=== PATIENT | female | born 1980 | race Caucasian/White ===

== ENCOUNTER 2016-11-02 14:28 | Emergency (ER) | payer OTHER ==
[2016-11-02 15:10] VITALS: TEMP 97.8
--- NOTE | 2016-11-02 16:44 | ED ---
General Adult HPI - General Chief complaint: Chest Pain Stated complaint: left shoulder & Chest pain Time Seen by Provider: 11/02/16 16:17 Source: patient, RN notes reviewed, old records reviewed Mode of arrival: ambulatory Limitations: no limitations - History of Present Illness Initial comments: Chief complaint and history of present illness is a 28-year-old female with multiple medical problems. She reports when she was exercising today at the why she had discomfort to her left arm. She reports she often gets to the point of nearly blacking out not passing out or syncope but with exercise singing coughing she'll have to stop and things get black. She does have a past history of POTS. She supposed to be on nadolol which she stopped 3 months ago. States she's worsen stopping it. Strongly advised to return to her complaint evaluation officer for reevaluation and then restarting her medication. No associated sweats or other problems. No chest pain today. His recurrent palpitations. Feels flushed. Reports this happens daily. - Related Data Home Medications Medication Instructions Recorded Confirmed Folic Acid 1 mg PO DAILY 11/02/16 11/02/16 Ipratropium [place] [Atrovent Hfa] 2 puff INHALATION RT-QID PRN 11/02/16 L.acidoph,Paracasei, B.lactis 1 cap PO DAILY 11/02/16 11/02/16 [Probiotic] Multivitamins, Thera [Multivitamin] 1 tab PO DAILY 11/02/16 11/02/16 Allergies Allergy/AdvReac Type Severity Reaction Status Date / Time ciprofloxacin [From Cipro] Allergy Rash/Hives Verified 11/02/16 16:46 codeine Allergy Anaphylaxis Verified 11/02/16 16:46 Iodinated Contrast Media - Allergy Anaphylaxis Verified 11/02/16 16:46 Oral and [Iodinated Contrast Media - IV Dye] iodine Allergy Anaphylaxis Verified 11/02/16 16:46 morphine Allergy Anaphylaxis Verified 11/02/16 16:46 peas Allergy Throat Verified 11/02/16 16:46 Itches Penicillins Allergy Dyspnea Verified 11/02/16 16:46 sulfamethoxazole Allergy Rash/Hives Verified 11/02/16 16:46 [From Bactrim] trimethoprim [From Bactrim] Allergy Rash/Hives Verified 11/02/16 16:46 Review of Systems ROS Statement: Those systems with pertinent positive or pertinent negative responses have been documented in the HPI. Review of systems when sitting still no headache but she have chronic neck discomfort no chest pain occasional palpitation when she sings or breathes rapidly. No GI/ problems that are new. Chronic right lower quadrant discomfort being worked on for years by urologists CULINARY MANAGER and family doctor. One new finding is some tingling to her left second toe. All systems were otherwise reviewed. Past medical problems GERD, prolapse mitral valve by Doppler per patient. Pots syndrome. Surgeries include ureteral surgery on the right kidney, hysterectomy cholecystectomy. Family history not cooperative during ALLERGIES Cipro, iodine contrast, PEs, penicillin. On hard copy. Nonsmoker nondrinker ROS Other: All systems not noted in ROS Statement are negative. Past Medical History Past Medical History: GERD/Reflux Additional Past Medical History / Comment(s): POTS, PROLAPSED MITRAL VALVE, MTHFR(CLOTTING DISORDER), hydronephrosis History of Any Multi-Drug Resistant Organisms: MRSA Date of last positivie culture/infection: 2006 MDRO Source:: THIGH Past Surgical History: Cholecystectomy, Hysterectomy Additional Past Surgical History / Comment(s): KIDNEY SURGERY Past Psychological History: No Psychological Hx Reported Smoking Status: Former smoker Past Alcohol Use History: None Reported Past Drug Use History: None Reported General Exam - General Exam Comments Initial Comments: General: The patient is awake and alert, in no distress, and does not appear acutely ill. Symptoms occurred while working out at the [employer]. Some discomfort her left arm. As she stopped her routine. Vital signs show temperature 97.8 pulse 85 respiratory rate 20 pulse ox 99% room air blood pressure 146/81. Elevated systolic noted. Patient will be following up with her family physician in next 1-2 weeks. Eye: Pupils are equal, round and reactive to light, extra-ocular movements are intact ; there is normal conjunctiva bilaterally. No signs of icterus. Ears, nose, mouth and throat: There are moist mucous membranes and no oral lesions. Neck: The neck is supple, there is no tenderness or JVD. Thyroid not enlarged, no carotid bruit. Chronic left-sided neck discomfort but nothing new today. She also hypothesized is that may be the left arm discomfort came from the chronic discomfort in her neck. Cardiovascular: There is a regular rate and rhythm. No murmur, rub or gallop is appreciated. Respiratory: Lungs are clear to auscultation, respirations are non-labored, breath sounds are equal. No wheezes, stridor, rales, or rhonchi. Gastrointestinal: Soft, non-distended, non-tender abdomen without masses or organomegaly noted. There is no rebound or guarding present. No CVA tenderness. Bowel sounds are unremarkable. Chronic right lower quadrant discomfort. Being worked up by family doctor, CULINARY MANAGER and urology. No changes today. Back: There is no tenderness to palpation in the midline. There is no obvious deformity. No rashes noted. Musculoskeletal: Normal ROM, no tenderness, There is no pedal edema. There is no calf tenderness or swelling. Sensation intact. Pulses equal bilaterally 2+. Neurological: CN II-XII intact, There are no obvious motor or sensory deficits. Coordination appears grossly intact. Speech is normal. No focal or lateralizing findings Skin: Skin is warm and dry and no rashes or lesions are noted. Psychiatric: Cooperative, appropriate mood & affect, normal judgment. Limitations: no limitations Course Vital Signs 11/02/16 11/02/16 15:07 17:50 Temperature 97.8 F Pulse Rate 85 81 Respiratory 20 18 Rate Blood Pressure 146/81 140/74 O2 Sat by Pulse 99 98 Oximetry EKG Findings - EKG Comments: EKG Findings:: EKG was done and reviewed at 1522 showing normal sinus rhythm no acute ST elevation no ectopy no ischemic changes. Rate 82. A 154 QRS 86 QTC 4: 15. Medical Decision Making - Medical Decision Making Decision making; patient's labs show white count 7.8 hemoglobin 13.7 hematocrit 40, INR 1.0. Potassium 3.9 with a BUN 12 creatinine 0.8 with a GFR greater than 60. Troponin less than 0.012 CK within normal limits. Chest x-ray was done and reviewed by radiologist his impression is ;there is no focal airspace opacity, pleural effusion, or pneumothorax seen. Cardiac silhouette size within normal limits. osseous structures are intact. Impression no acute cardiopulmonary process. As read by Dr. Lay The patient's vital signs, EKG and labs NORMAL. THE PATIENT WAS TOLD TO CALL FOLLOW UP WITH HER FAMILY PHYSICIAN AND HER MANNEQUIN MAKER. STRONGLY SUGGEST THAT SHE START ON THE SAME MEDICATIONS ARE SUPPOSED BE ON WHICH SHE VOLUNTARILY STOPPED 3 MONTHS AGO. SHE ADMITS THAT SHE FELT BETTER WHILE ON THEM. ADVISED NO EXERCISE UNTIL CLEARED BY HER DOCTORS. - Lab Data Result diagrams: 11/02/16 16:52 11/02/16 16:52 Lab Results 11/02/16 11/02/16 11/02/16 Range/Units 16:52 16:52 16:52 WBC 7.8 (3.8-10.6) k/uL RBC 4.66 (3.80-5.40) m/uL Hgb 13.7 (11.4-16.0) gm/dL Hct 40.0 (34.0-46.0) % MCV 85.8 (80.0-100.0) fL MCH 29.3 (25.0-35.0) pg MCHC 34.1 (31.0-37.0) g/dL RDW 12.6 (11.5-15.5) % Plt Count 271 (150-450) k/uL Neutrophils % 69 % Lymphocytes % 19 % Monocytes % 9 % Eosinophils % 1 % Basophils % 1 % Neutrophils # 5.4 (1.3-7.7) k/uL Lymphocytes # 1.5 (1.0-4.8) k/uL Monocytes # 0.7 (0-1.0) k/uL Eosinophils # 0.1 (0-0.7) k/uL Basophils # 0.0 (0-0.2) k/uL PT (9.0-12.0) sec INR (<1.1) APTT (22.0-30.0) sec Sodium 142 (137-145) mmol/L Potassium 3.9 (3.5-5.1) mmol/L Chloride 105 (98-107) mmol/L Carbon Dioxide 25 (22-30) mmol/L Anion Gap 12 mmol/L BUN 12 (7-17) mg/dL Creatinine 0.81 (0.52-1.04) mg/dL Est GFR (MDRD) Af Amer >60 (>60 ml/min/1.73 sqM) Est GFR (MDRD) Non-Af >60 (>60 ml/min/1.73 sqM) Glucose 89 (74-99) mg/dL Calcium 9.4 (8.4-10.2) mg/dL Magnesium 1.9 (1.6-2.3) mg/dL Total Bilirubin 0.5 (0.2-1.3) mg/dL AST 23 (14-36) U/L ALT 33 (9-52) U/L Alkaline Phosphatase 66 (38-126) U/L Total Creatine Kinase 106 (30-135) U/L CK-MB (CK-2) 0.8 (0.0-2.4) ng/mL CK-MB (CK-2) Rel Index 0.8 Troponin I <0.012 (0.000-0.034) ng/mL Total Protein 7.9 (6.3-8.2) g/dL Albumin 4.5 (3.5-5.0) g/dL 11/02/16 Range/Units 16:52 WBC (3.8-10.6) k/uL RBC (3.80-5.40) m/uL Hgb (11.4-16.0) gm/dL Hct (34.0-46.0) % MCV (80.0-100.0) fL MCH (25.0-35.0) pg MCHC (31.0-37.0) g/dL RDW (11.5-15.5) % Plt Count (150-450) k/uL Neutrophils % % Lymphocytes % % Monocytes % % Eosinophils % % Basophils % % Neutrophils # (1.3-7.7) k/uL Lymphocytes # (1.0-4.8) k/uL Monocytes # (0-1.0) k/uL Eosinophils # (0-0.7) k/uL Basophils # (0-0.2) k/uL PT 10.4 (9.0-12.0) sec INR 1.0 (<1.1) APTT 25.3 (22.0-30.0) sec Sodium (137-145) mmol/L Potassium (3.5-5.1) mmol/L Chloride (98-107) mmol/L Carbon Dioxide (22-30) mmol/L Anion Gap mmol/L BUN (7-17) mg/dL Creatinine (0.52-1.04) mg/dL Est GFR (MDRD) Af Amer (>60 ml/min/1.73 sqM) Est GFR (MDRD) Non-Af (>60 ml/min/1.73 sqM) Glucose (74-99) mg/dL Calcium (8.4-10.2) mg/dL Magnesium (1.6-2.3) mg/dL Total Bilirubin (0.2-1.3) mg/dL AST (14-36) U/L ALT (9-52) U/L Alkaline Phosphatase (38-126) U/L Total Creatine Kinase (30-135) U/L CK-MB (CK-2) (0.0-2.4) ng/mL CK-MB (CK-2) Rel Index Troponin I (0.000-0.034) ng/mL Total Protein (6.3-8.2) g/dL Albumin (3.5-5.0) g/dL Disposition Clinical Impression: Palpitations Disposition: HOME SELF-CARE Condition: Fair Instructions: Palpitations (ED) Additional Instructions: Follow-up family doctor and hand mixer. Start taking the medications prescribed by your doctors. No exercise until cleared by your physicians. Time of Disposition: 18:13
[2016-11-02 17:19] LABS: Basophils % (A) 1 %; CH 29.5; CHCM 34.5; Eosinophils # (A) 0.1 k/uL (0-0.7); Eosinophils % (A) 1 %; HDW 2.35; HGB 13.7 gm/dL (11.4-16.0); Luc % (Auto) 1; Lymphocytes # (A) 1.5 k/uL (1.0-4.8); Lymphocytes % (A) 19 %; MCH 29.3 pg (25.0-35.0); MCHC 34.1 g/dL (31.0-37.0); MCV 85.8 fL (80.0-100.0); Mean Platelet Volume 7.4; Monocytes # (A) 0.7 k/uL (0-1.0); Monocytes % (A) 9 %; Neutrophils # (A) 5.4 k/uL (1.3-7.7); Neutrophils % (A) 69 %; RBC 4.66 m/uL (3.80-5.40); RDW 12.6 % (11.5-15.5); WBC 7.8 k/uL (3.8-10.6)
--- NOTE | 2016-11-02 17:25 | XR ---
EXAMINATION TYPE: XR chest 2V DATE OF EXAM: 11/02/2016 5:19 PM COMPARISON: 06/27/2014 HISTORY: Pain TECHNIQUE: Frontal and lateral views of the chest are obtained. FINDINGS: There is no focal air space opacity, pleural effusion, or pneumothorax seen. The cardiac silhouette size is within normal limits. The osseous structures are intact. IMPRESSION: No acute cardiopulmonary process.
[2016-11-02 17:27] LABS: Partial Thromboplastin Time 25.3 sec (22.0-30.0); Prothrombin Time 10.4 sec (9.0-12.0)
[2016-11-02 17:34] LABS: ALT 33 U/L (9-52); AST 23 U/L (14-36); Alkaline Phosphatase 66 U/L (38-126); Anion Gap 12 mmol/L; Blood Urea Nitrogen 12 mg/dL (7-17); Calcium 9.4 mg/dL (8.4-10.2); Carbon Dioxide 25 mmol/L (22-30); Chloride 105 mmol/L (98-107); Glucose 89 mg/dL (74-99); Magnesium 1.9 mg/dL (1.6-2.3); Non-African American GFR(MDRD) >60 (>60 ml/min/1.73 sqM); Potassium 3.9 mmol/L (3.5-5.1); Sodium 142 mmol/L (137-145); Total Bilirubin 0.5 mg/dL (0.2-1.3); Total Protein 7.9 g/dL (6.3-8.2)
[2016-11-02 17:43] LABS: Creatine Kinase 106 U/L (30-135)
[2016-11-02 17:55] LABS: Creatine Kinase MB 0.8 ng/mL (0.0-2.4); Troponin I <0.012 ng/mL (0.000-0.034)
[2016-11-02 18:42] VITALS: BP 113/64; PULSE 74; RESP 16
== END 2016-11-02 18:46 | disposition home or self-care (01) ==
LOC: EC 14:28
DX: R00.2 Palpitations (principal); Z91.14 Patient's other noncompliance with medication regimen; Z86.79 Personal history of other diseases of the circulatory system; Z87.891 Personal history of nicotine dependence; Z88.0 Allergy status to penicillin; Z88.1 Allergy status to other antibiotic agents; Z88.2 Allergy status to sulfonamides; Z88.5 Allergy status to narcotic agent; Z91.041 Radiographic dye allergy status
CPT/HCPCS: 36415; 71020; 80053; 82550; 82553; 83735; 84484; 85025; 85610; 85730; 93005; 99285

== ENCOUNTER 2016-11-13 19:49 | Emergency (ER) | payer OTHER ==
[2016-11-13 20:33] VITALS: RESP 18
[2016-11-13] MEDS ORDERED: SODIUM CHLORIDE 0.9% 1,000 ML IV STA (22:43)
[2016-11-13] MEDS ORDERED: KETOROLAC 30 MG/ML 1 ML VIAL IVP STA (22:43)
[2016-11-13] MEDS ORDERED: ONDANSETRON 4 MG/2 ML VIAL IVP STA (22:43)
--- NOTE | 2016-11-13 22:54 | ED ---
Nausea/Vomiting/Diarrhea HPI - General Chief complaint: Nausea/Vomiting/Diarrhea Stated complaint: Diff breathing Time Seen by Provider: 11/13/16 22:30 Source: patient, RN notes reviewed Mode of arrival: ambulatory Limitations: no limitations - History of Present Illness Initial comments: Patient is a 36-year-old female with multiple vague complaints. Patient reports that she has recently been diagnosed with a bladder infection and placed on Macrobid. Patient reports that she has been taking it for the past 4 days. Patient reports that she has noticed increased flushing of her face and feeling chilled that despite taking the antibiotics. Patient also reports that she has some right-sided kidney pain. She states that she has a history of hydronephrosis in her right kidney. She reports that she's had no specific fever or chills she just feels very fatigued. Patient denies any vomiting but does feel nauseated. Patient also reports that she feels some lower pelvic tenderness and cramping pain. Patient denies any recent fever, chills, shortness of breath, chest pain, back pain, abdominal pain, nausea vomiting, numbness or tingling, dysuria or hematuria, constipation or diarrhea, headaches or visual changes, or any other current symptoms - Related Data Home Medications Medication Instructions Recorded Confirmed Folic Acid 1 mg PO DAILY 11/02/16 11/02/16 Ipratropium [place] [Atrovent Hfa] 2 puff INHALATION RT-QID PRN 11/02/16 L.acidoph,Paracasei, B.lactis 1 cap PO DAILY 11/02/16 11/02/16 [Probiotic] Multivitamins, Thera [Multivitamin] 1 tab PO DAILY 11/02/16 11/02/16 Allergies Allergy/AdvReac Type Severity Reaction Status Date / Time ciprofloxacin [From Cipro] Allergy Rash/Hives Verified 11/13/16 20:33 codeine Allergy Anaphylaxis Verified 11/13/16 20:33 Iodinated Contrast Media - Allergy Anaphylaxis Verified 11/13/16 20:33 Oral and [Iodinated Contrast Media - IV Dye] iodine Allergy Anaphylaxis Verified 11/13/16 20:33 morphine Allergy Anaphylaxis Verified 11/13/16 20:33 peas Allergy Throat Verified 11/13/16 20:33 Itches Penicillins Allergy Dyspnea Verified 11/13/16 20:33 sulfamethoxazole Allergy Rash/Hives Verified 11/13/16 20:33 [From Bactrim] trimethoprim [From Bactrim] Allergy Rash/Hives Verified 11/13/16 20:33 Review of Systems ROS Statement: Those systems with pertinent positive or pertinent negative responses have been documented in the HPI. ROS Other: All systems not noted in ROS Statement are negative. Past Medical History Past Medical History: GERD/Reflux Additional Past Medical History / Comment(s): POTS, PROLAPSED MITRAL VALVE, MTHFR(CLOTTING DISORDER), hydronephrosis History of Any Multi-Drug Resistant Organisms: MRSA Date of last positivie culture/infection: 2006 MDRO Source:: THIGH Past Surgical History: Cholecystectomy, Hysterectomy Additional Past Surgical History / Comment(s): KIDNEY SURGERY Past Psychological History: No Psychological Hx Reported Smoking Status: Former smoker Past Alcohol Use History: None Reported Past Drug Use History: None Reported General Exam - General Exam Comments Initial Comments: Patient is a 36-year-old female. She is on appear to be in any acute distress at this time. Limitations: no limitations General appearance: alert, in no apparent distress Head exam: Present: atraumatic Eye exam: Present: normal appearance, PERRL, EOMI. Absent: scleral icterus, conjunctival injection, periorbital swelling ENT exam: Present: normal exam, mucous membranes moist Neck exam: Present: normal inspection. Absent: tenderness, meningismus, lymphadenopathy Respiratory exam: Present: normal lung sounds bilaterally. Absent: respiratory distress, wheezes, rales, rhonchi, stridor Cardiovascular Exam: Present: regular rate, normal rhythm, normal heart sounds. Absent: systolic murmur, diastolic murmur, rubs, gallop, clicks GI/Abdominal exam: Present: soft, tenderness (Reports some suprapubic tenderness.), normal bowel sounds. Absent: distended, guarding, rebound, rigid Extremities exam: Present: normal inspection, full ROM, normal capillary refill. Absent: tenderness, pedal edema, joint swelling, calf tenderness Back exam: Present: normal inspection Neurological exam: Present: alert, oriented X3, CN II-XII intact Psychiatric exam: Present: normal affect, normal mood Skin exam: Present: warm, dry, intact, normal color. Absent: rash Course Vital Signs 11/13/16 11/14/16 20:29 01:02 Temperature 98 F 97 F L Pulse Rate 77 80 Respiratory 18 18 Rate Blood Pressure 128/80 129/69 O2 Sat by Pulse 99 98 Oximetry Medical Decision Making - Medical Decision Making Patient is a 28-year-old female with multiple vague complaints including right flank tenderness suprapubic tenderness and flushing of the face. Patient reports and treated for urinary tract infection with Macrobid for 4 days.. Patient reports that this went to take her antibiotic she starts to feel flushed in the face. Patient labs and imaging studies were reviewed and are all negative for any acute process. I discussed this case with Dr. Guajardo needed a [id number] interview with the patient. He advises to discharge the patient with some medication for constipation as her AB does show some stool. Patient will be discharged with a bottle of magnesium citrate. I also advised patient to follow-up with a [employer] if she continues to have a lower pelvic pain. Patient understands treatment plan will comply. Return parameters were discussed. - Lab Data Result diagrams: 11/13/16 22:47 11/13/16 22:47 Lab Results 11/13/16 11/13/16 11/13/16 Range/Units 22:47 22:47 22:47 WBC 7.8 (3.8-10.6) k/uL RBC 5.23 (3.80-5.40) m/uL Hgb 14.7 (11.4-16.0) gm/dL Hct 44.3 (34.0-46.0) % MCV 84.7 (80.0-100.0) fL MCH 28.2 (25.0-35.0) pg MCHC 33.3 (31.0-37.0) g/dL RDW 12.2 (11.5-15.5) % Plt Count 326 (150-450) k/uL Neutrophils % 64 % Lymphocytes % 27 % Monocytes % 5 % Eosinophils % 2 % Basophils % 1 % Neutrophils # 4.9 (1.3-7.7) k/uL Lymphocytes # 2.1 (1.0-4.8) k/uL Monocytes # 0.4 (0-1.0) k/uL Eosinophils # 0.2 (0-0.7) k/uL Basophils # 0.1 (0-0.2) k/uL PT 10.2 (9.0-12.0) sec INR 1.0 (<1.1) APTT 24.6 (22.0-30.0) sec Sodium 140 (137-145) mmol/L Potassium 3.7 (3.5-5.1) mmol/L Chloride 101 (98-107) mmol/L Carbon Dioxide 27 (22-30) mmol/L Anion Gap 12 mmol/L BUN 11 (7-17) mg/dL Creatinine 0.89 (0.52-1.04) mg/dL Est GFR (MDRD) Af Amer >60 (>60 ml/min/1.73 sqM) Est GFR (MDRD) Non-Af >60 (>60 ml/min/1.73 sqM) Glucose 92 (74-99) mg/dL Calcium 9.4 (8.4-10.2) mg/dL Total Bilirubin 0.4 (0.2-1.3) mg/dL AST 22 (14-36) U/L ALT 28 (9-52) U/L Alkaline Phosphatase 78 (38-126) U/L Total Protein 8.3 H (6.3-8.2) g/dL Albumin 4.6 (3.5-5.0) g/dL Amylase 86 (30-110) U/L Lipase 127 (23-300) U/L Urine Color Urine Appearance (Clear) Urine pH (5.0-8.0) Ur Specific [place] (1.001-1.035) Urine Protein (Negative) Urine Glucose (UA) (Negative) Urine Ketones (Negative) Urine Blood (Negative) Urine Nitrate (Negative) Urine Bilirubin (Negative) Urine Urobilinogen (<2.0) mg/dL Ur Leukocyte Esterase (Negative) 11/13/16 Range/Units 22:47 WBC (3.8-10.6) k/uL RBC (3.80-5.40) m/uL Hgb (11.4-16.0) gm/dL Hct (34.0-46.0) % MCV (80.0-100.0) fL MCH (25.0-35.0) pg MCHC (31.0-37.0) g/dL RDW (11.5-15.5) % Plt Count (150-450) k/uL Neutrophils % % Lymphocytes % % Monocytes % % Eosinophils % % Basophils % % Neutrophils # (1.3-7.7) k/uL Lymphocytes # (1.0-4.8) k/uL Monocytes # (0-1.0) k/uL Eosinophils # (0-0.7) k/uL Basophils # (0-0.2) k/uL PT (9.0-12.0) sec INR (<1.1) APTT (22.0-30.0) sec Sodium (137-145) mmol/L Potassium (3.5-5.1) mmol/L Chloride (98-107) mmol/L Carbon Dioxide (22-30) mmol/L Anion Gap mmol/L BUN (7-17) mg/dL Creatinine (0.52-1.04) mg/dL Est GFR (MDRD) Af Amer (>60 ml/min/1.73 sqM) Est GFR (MDRD) Non-Af (>60 ml/min/1.73 sqM) Glucose (74-99) mg/dL Calcium (8.4-10.2) mg/dL Total Bilirubin (0.2-1.3) mg/dL AST (14-36) U/L ALT (9-52) U/L Alkaline Phosphatase (38-126) U/L Total Protein (6.3-8.2) g/dL Albumin (3.5-5.0) g/dL Amylase (30-110) U/L Lipase (23-300) U/L Urine Color Light Yellow Urine Appearance Clear (Clear) Urine pH 5.5 (5.0-8.0) Ur Specific [place] 1.003 (1.001-1.035) Urine Protein Negative (Negative) Urine Glucose (UA) Negative (Negative) Urine Ketones Negative (Negative) Urine Blood Negative (Negative) Urine Nitrate Negative (Negative) Urine Bilirubin Negative (Negative) Urine Urobilinogen <2.0 (<2.0) mg/dL Ur Leukocyte Esterase Negative (Negative) - Radiology Data Radiology results: report reviewed Chest x-ray and KUB x-ray revealed no evidence of any acute process. Disposition Clinical Impression: Abdominal pain Disposition: HOME SELF-CARE Condition: Good Instructions: Abdominal Pain (ED) Additional Instructions: Patient started to complete magnesium citrate the morning tomorrow. Patient instructed to follow-up with [employer] if symptoms continue to persist. Referrals: Nilo Alvarez MD [Primary Care Provider] - 1-2 days Svetlana Blank MD [STAFF PHYSICIAN] - 1-2 days Time of Disposition: 00:41
[2016-11-13 22:57] LABS: Basophils # (A) 0.1 k/uL (0-0.2); Basophils % (A) 1 %; CH 29.3; CHCM 34.7; Eosinophils # (A) 0.2 k/uL (0-0.7); Eosinophils % (A) 2 %; HCT 44.3 % (34.0-46.0); HDW 2.41; HGB 14.7 gm/dL (11.4-16.0); Luc # (Auto) 0.12; Luc % (Auto) 2; Lymphocytes # (A) 2.1 k/uL (1.0-4.8); Lymphocytes % (A) 27 %; MCH 28.2 pg (25.0-35.0); MCHC 33.3 g/dL (31.0-37.0); MCV 84.7 fL (80.0-100.0); Mean Platelet Volume 6.9; Monocytes # (A) 0.4 k/uL (0-1.0); Monocytes % (A) 5 %; Neutrophils # (A) 4.9 k/uL (1.3-7.7); Neutrophils % (A) 64 %; RBC 5.23 m/uL (3.80-5.40); RDW 12.2 % (11.5-15.5); WBC 7.8 k/uL (3.8-10.6); WBC (Perox) 7.36
[2016-11-13 22:58] LABS: Appearance,Urine Clear (Clear); Bilirubin,Urine Negative (Negative); Glucose,Urine (UA) Negative (Negative); Ketones,Urine Negative (Negative); Leukocyte Esterase,Urine Negative (Negative); Nitrite,Urine Negative (Negative); PH, Urine 5.5 (5.0-8.0); Protein,Urine Negative (Negative); Specific Gravity,Urine 1.003 (1.001-1.035); UA Billing (MACRO vs. MICRO) CHEM; Urobilinogen,Urine <2.0 mg/dL (<2.0)
[2016-11-13 23:06] LABS: ALT 28 U/L (9-52); AST 22 U/L (14-36); Alkaline Phosphatase 78 U/L (38-126); Amylase 86 U/L (30-110); Anion Gap 12 mmol/L; Blood Urea Nitrogen 11 mg/dL (7-17); Calcium 9.4 mg/dL (8.4-10.2); Carbon Dioxide 27 mmol/L (22-30); Chloride 101 mmol/L (98-107); Glucose 92 mg/dL (74-99); Non-African American GFR(MDRD) >60 (>60 ml/min/1.73 sqM); Partial Thromboplastin Time 24.6 sec (22.0-30.0); Potassium 3.7 mmol/L (3.5-5.1); Prothrombin Time 10.2 sec (9.0-12.0); Sodium 140 mmol/L (137-145); Total Bilirubin 0.4 mg/dL (0.2-1.3); Total Protein 8.3 g/dL (6.3-8.2)
--- NOTE | 2016-11-13 23:32 | XR ---
EXAMINATION TYPE: XR KUB DATE OF EXAM: 11/13/2016 11:28 PM CLINICAL HISTORY: Burning of her lower abdomen with heart and cold sweats history of cholecystectomy and hysterectomy TECHNIQUE: Single supine KUB image of the abdomen is obtained. COMPARISON: None. FINDINGS: Scattered gas is seen in non-distended small bowel loops. Gas and fecal material is seen in non-distended colon. There is no visceromegaly, pneumoperitoneum, or abnormal calcification appr eciated. The lung bases are clear and the osseous structures are intact. Postsurgical changes of cho lecystectomy are noted. IMPRESSION: Overall nonobstructive bowel gas pattern.
--- NOTE | 2016-11-13 23:59 | XR ---
EXAMINATION TYPE: XR chest 2V DATE OF EXAM: 11/13/2016 11:35 PM COMPARISON: 11/12/2016 HISTORY: Shortness of breath TECHNIQUE: Frontal and lateral views of the chest are obtained. FINDINGS: There is no focal air space opacity, pleural effusion, or pneumothorax seen. The cardiac silhouette size is within normal limits. The osseous structures are intact. IMPRESSION: 1. No acute cardiopulmonary process. 2. No significant interval change.
[2016-11-14] MEDS ORDERED: MAGNESIUM CITRATE 296 ML BOTTLE PO ONE (00:42)
[2016-11-14 01:03] VITALS: BP 129/69; PULSE 80; TEMP 97
== END 2016-11-14 01:03 | disposition home or self-care (01) ==
LOC: EC 19:49
DX: R10.9 Unspecified abdominal pain (principal); Z88.5 Allergy status to narcotic agent; Z91.041 Radiographic dye allergy status; Z91.018 Allergy to other foods; Z88.0 Allergy status to penicillin; Z88.2 Allergy status to sulfonamides; Z87.891 Personal history of nicotine dependence
CPT/HCPCS: 99284; 96374; 96375; 96361; 36415; 93005; 80053; 82150; 83690; 85025; 85610; 85730; 81003; 87086; 71020; 74000; J2405; J1885

== ENCOUNTER → 2016-12-16 | Outpatient (CLI) | payer OTHER | END | disposition home or self-care (01) | LOC: LABWHC1 11:48 | PROVIDERS: ATTEND Nurse Practitioner Adult Health | DX: R00.2 Palpitations (principal); R63.5 Abnormal weight gain; R53.83 Other fatigue | CPT/HCPCS: 36415; 84443 ==

== ENCOUNTER → 2017-02-01 | Outpatient (CLI) | payer OTHER ==
--- NOTE | 2017-02-02 07:03 | MR ---
EXAMINATION TYPE: MR brain wo con DATE OF EXAM: 02/01/2017 11:42 AM COMPARISON: MRI brain May 29, 2011. HISTORY: Headaches sudden onset per order. Additional symptoms of lightheadedness and right-sided hea ring loss per patient. TECHNIQUE: Multiplanar, multisequence imaging of the brain and brainstem is performed without IV cont rast. FINDINGS: Diffusion weighted images demonstrate no evidence of a recent infarct or other diffusion abnormality. There is no extraaxial fluid collection or significant white matter signal abnormality. The ventricu lar system and cisternal spaces are normal in size and appearance. The brain volume is age appropria te. Midline structures demonstrate normal morphology. The craniocervical junction appears within normal limits. Normal vascular flow voids are present. The visualized sinuses are clear and the globes are i ntact. No suspicious fluid signal in the mastoid air cells is present bilaterally. IMPRESSION: No significant finding is seen to account for patient's symptoms.
== END | disposition home or self-care (01) ==
LOC: RADMRIMAIN 10:58
PROVIDERS: ATTEND Psychiatry & Neurology Neurology
DX: R51 Headache (principal)
CPT/HCPCS: 70551

== ENCOUNTER 2017-04-02 11:47 | Day surgery (SDC) | payer OTHER ==
[2017-04-01 09:46] VITALS: BMI 24.9
[~2017-04-02 11:47] MED LIST: LACTATED RINGERS 1,000 ML IV SCH; LIDOCAINE 1% 20 ML VIAL (10MG/ML) FOR IV START INTRADERMA PRN
[2017-04-02 12:49] VITALS: TEMP 97.1
[2017-04-02] MEDS ORDERED: LIDOCAINE 1% INJ 10MG/ML (20 ML MDV) ONE (13:05)
[2017-04-02] MEDS ORDERED: PROPOFOL 10 MG/ML 20 ML VIAL IV ONE (13:05)
--- NOTE | 2017-04-02 13:14 | P.PCN ---
Date of Procedure: 04/02/17 Preoperative Diagnosis: Postoperative Diagnosis: Procedure(s) Performed: BRIEF HISTORY: Patient is a 28-year-old, pleasant, white female, scheduled for an upper endoscopy as a part of evaluation of epigastric pain for the last 2 months duration. She is been on Zantac with no help and presently on Prilosec 20 mg daily with some improvement in symptoms. PROCEDURE PERFORMED: Esophagogastroduodenoscopy with biopsy biopsy. PREOPERATIVE DIAGNOSIS: Chronic Epigastric pain. IV sedation per anesthesia. PROCEDURE: After informed consent was obtained, the patient was brought into the endoscopy unit. IV sedation was administered by Anesthesia under continuous monitoring. Initially the Olympus GIF-140 video endoscope was inserted into the mouth. Esophagus intubated without any difficulty. It was gradually advanced into the stomach and duodenum and carefully examined. The bulb and the second part of the duodenum appeared normal. The scope at this time was withdrawn to the stomach, adequately insufflated with air, and upon careful examination, mucosa of the antrum, had mild mottling of the mucosa and biopsies were done from this area. The body, cardia and the fundus appeared normal. The scope was then withdrawn into the esophagus. The GE junction was located at 39 cm from the incisors. There was once or visual erosion at the GE junction consistent with LA grade A reflux esophagitis. Rest of the esophagus appeared normal and the patient tolerated the procedure well. IMPRESSION: 1. Mild antral gastritis. 2. One superficial erosion at the GE junction consistent with LA grade A reflux esophagitis. RECOMMENDATIONS: The findings of this examination were discussed with the patient as well as a family. She was advised to follow with the biopsy results. She'll continue with Prilosec 20 mg daily and follow antireflux measures. Implants: Indications for Procedure: Operative Findings: Description of Procedure:
[2017-04-02 13:40] VITALS: BP 122/78
[2017-04-02 13:53] VITALS: PULSE 69; RESP 16
== END 2017-04-02 14:16 | disposition home or self-care (01) ==
LOC: ORWHC2ENDO 11:47
PROVIDERS: ATTEND Internal Medicine Gastroenterology
DX: K29.50 Unspecified chronic gastritis without bleeding (principal); K21.9 Gastro-esophageal reflux disease without esophagitis; Z88.1 Allergy status to other antibiotic agents; Z88.5 Allergy status to narcotic agent; Z88.0 Allergy status to penicillin; Z88.2 Allergy status to sulfonamides; Z79.899 Other long term (current) drug therapy; J45.909 Unspecified asthma, uncomplicated
CPT/HCPCS: 88305; 88342; 43239; J2001; J2704

== ENCOUNTER → 2018-05-26 | Outpatient (CLI) | payer OTHER ==
--- NOTE | 2018-05-27 09:16 | MM ---
Reason for exam: screening (asymptomatic). Last mammogram was performed 2 years and 2 months ago. History: Family history of breast cancer in maternal grandmother at age 70. Physical Findings: A clinical breast exam by your physician is recommended on an annual basis and results should be correlated with mammographic findings. MG 3D Screening Mammo W/Cad Bilateral CC and MLO view(s) were taken. Technologist: Iman Kinsey, RT (R)(M) Prior study comparison: March 19, 2016, right breast MG 3d diag mammo w/cad RT. September 10, 2015, bilateral MG 3d diag mammo w/cad LINDA. The breast tissue is heterogeneously dense. This may lower the sensitivity of mammography. No suspicious abnormality. No significant changes when compared with prior studies. ASSESSMENT: Negative, BI-RAD 1 RECOMMENDATION: Routine screening mammogram of both breasts in 1 year.
== END | disposition home or self-care (01) ==
LOC: RADMAMWWP 13:09
PROVIDERS: ATTEND Obstetrics & Gynecology
DX: Z12.31 Encounter for screening mammogram for malignant neoplasm of breast (principal)
CPT/HCPCS: 77063; 77067

== ENCOUNTER → 2018-07-21 | Outpatient (CLI) | payer OTHER ==
--- NOTE | 2018-07-21 14:40 | US ---
EXAMINATION TYPE: US kidneys/renal and bladder DATE OF EXAM: 07/21/2018 COMPARISON: None CLINICAL HISTORY: 38-year-old female history of right-sided hydronephrosis. Patient with right flank pain TECHNIQUE: Multiple sonographic images of the kidneys and bladder are obtained. FINDINGS: EXAM MEASUREMENTS: Right Kidney: 9.2 x 4.6 x 5.2 cm Left Kidney: 8.7 x 4.5 x 4.6 cm Right Kidney: Mild hydronephrosis Left Kidney: No hydronephrosis. Bladder: distended, wnl as visualized Bilateral Jets seen IMPRESSION: Mild right-sided hydronephrosis.
== END ==
LOC: RADUSWWP 09:10
PROVIDERS: ATTEND Internal Medicine Nephrology
DX: N13.30 Unspecified hydronephrosis (principal)
CPT/HCPCS: 76770

== ENCOUNTER → 2018-08-08 | Outpatient (CLI) | payer OTHER ==
--- NOTE | 2018-08-08 17:28 | US ---
EXAMINATION TYPE: US axilla RT DATE OF EXAM: 08/08/2018 COMPARISON: NONE CLINICAL HISTORY: 38-year-old female R59.0 Localized Enlarged Lymph Nodes. TECHNIQUE: Multiple sonographic images of the right axilla were obtained. FINDINGS: Promotional Marketing Agent notes: Scanned over the rt axilla including the areas of pt's tenderness, no abnormality seen. IMPRESSION: No lymphadenopathy, solid or cystic lesion seen within the right axilla.
--- NOTE | 2018-08-08 17:29 | US ---
EXAMINATION TYPE: US axilla LT DATE OF EXAM: 08/08/2018 COMPARISON: NONE CLINICAL HISTORY: 38-year-old female R59.0 Localized Enlarged Lymph Nodes. TECHNIQUE: Multiple sonographic images of the left axilla were obtained. FINDINGS: Livestock Commission Agent notes: Scanned over the left axilla including the areas of pt's tenderness, no abnormalit y seen. IMPRESSION: No lymphadenopathy, solid or cystic lesion seen within the left axilla.
== END | disposition home or self-care (01) ==
LOC: RADUSWWP 13:44
PROVIDERS: ATTEND Family Medicine
DX: R59.0 Localized enlarged lymph nodes (principal)

== ENCOUNTER 2018-08-19 10:00 | Emergency (ER) | payer OTHER ==
[2018-08-19 10:10] VITALS: BP 133/73; PULSE 81; RESP 18; TEMP 98.1
--- NOTE | 2018-08-19 10:43 | ED ---
General Adult HPI - General Chief complaint: Headache Stated complaint: Headache and neck pain Time Seen by Provider: 08/19/18 10:16 Source: patient, RN notes reviewed, old records reviewed Mode of arrival: ambulatory Limitations: no limitations - History of Present Illness Initial comments: 38-year-old female presenting for evaluation of 9 months of frontal headache and sinus congestion. Patient states she's had clear nasal drainage for the past 5 months, prior to this she did have nasal swab performed by her primary care physician that was positive for MRSA. She was treated with antibiotics and repeat culture was obtained that was negative for MRSA. She's been on multiple doses of antibiotics over the past 5 months for her symptoms of nasal drainage and sinus headache. Denies fever or chills. She does report some mild sore throat associated with her drainage. No cough or dyspnea. No vomiting or diarrhea. Patient's symptoms have been present for the past 5-9 months. - Related Data Home Medications Medication Instructions Recorded Confirmed Cholecalciferol [Vitamin D3] 1,000 unit PO DAILY 08/19/18 08/19/18 Previous Rx's Medication Instructions Recorded Loratadine [Claritin] 10 mg PO DAILY #30 tab 08/19/18 Allergies Allergy/AdvReac Type Severity Reaction Status Date / Time ciprofloxacin [From Cipro] Allergy Rash/Hives Verified 08/19/18 10:23 codeine Allergy Anaphylaxis Verified 08/19/18 10:23 Iodinated Contrast- Oral and Allergy Anaphylaxis Verified 08/19/18 10:23 IV Dye [Iodinated Contrast Media - IV Dye] iodine Allergy Anaphylaxis Verified 08/19/18 10:23 morphine Allergy Anaphylaxis Verified 08/19/18 10:23 peas Allergy Throat Verified 08/19/18 10:23 Itches Penicillins Allergy Dyspnea Verified 08/19/18 10:23 shrimp Allergy Unknown Verified 08/19/18 10:23 sulfamethoxazole Allergy Rash/Hives Verified 08/19/18 10:23 [From Bactrim] trimethoprim [From Bactrim] Allergy Rash/Hives Verified 08/19/18 10:23 Review of Systems ROS Statement: Those systems with pertinent positive or pertinent negative responses have been documented in the HPI. ROS Other: All systems not noted in ROS Statement are negative. Past Medical History Past Medical History: GERD/Reflux, Mitral Valve Prolapse (MVP) Additional Past Medical History / Comment(s): POTS, , MTHFR(CLOTTING DISORDER), hydronephrosis History of Any Multi-Drug Resistant Organisms: MRSA Date of last positivie culture/infection: 2006 MDRO Source:: THIGH Past Surgical History: Cholecystectomy, Hysterectomy Additional Past Surgical History / Comment(s): KIDNEY SURGERY Past Psychological History: No Psychological Hx Reported Smoking Status: Former smoker Past Alcohol Use History: None Reported Past Drug Use History: None Reported - Past Family History Father Family Medical History: Cancer General Exam Limitations: no limitations General appearance: alert, in no apparent distress Head exam: Present: atraumatic, normocephalic Eye exam: Present: normal appearance, PERRL, EOMI. Absent: periorbital swelling , periorbital tenderness ENT exam: Present: mucous membranes moist, other (Mild pharyngeal erythema and cobblestoning, no tonsillar swelling or exudate, bilateral TMs are within normal limits. Clear nasal drainage. Mildly swollen turbinates bilaterally) Neck exam: Present: normal inspection. Absent: tenderness, meningismus Respiratory exam: Present: normal lung sounds bilaterally. Absent: respiratory distress, wheezes Cardiovascular Exam: Present: regular rate, normal rhythm GI/Abdominal exam: Present: soft. Absent: distended, tenderness Course Vital Signs 08/19/18 10:07 Temperature 98.1 F Pulse Rate 81 Respiratory 18 Rate Blood Pressure 133/73 O2 Sat by Pulse 99 Oximetry Medical Decision Making - Medical Decision Making 38-year-old female presenting with 5 months of nasal congestion, drainage, and sinus headache. Patient has completely multiple rounds of antibiotics, has not been on any antihistamines, no nasal steroids, no nasal wash. Her primary care physician is well aware of these symptoms and has been following her over the past 5- to 9 months. Patient is overall well-appearing, stable vitals, afebrile, she has clear nasal drainage and mild cobblestoning in the posterior oropharynx, otherwise her exam is unremarkable. Patient will trial Claritin and saline rinse. If this does not alleviate her symptoms, she will try Flonase. If symptoms do not improve she will follow-up with both her primary care physician and ENT. Radiology interpretation of previous MRI in January [address] in November 2015. Interpretation was clear sinuses bilaterally, no significant findings. Disposition Clinical Impression: Environmental allergies, Sinus headache Disposition: HOME SELF-CARE Condition: Good Instructions: Allergic Rhinitis (ED), Rhinosinusitis (ED) Additional Instructions: Please try Claritin and normal saline nasal rinse, and Flonase. If symptoms persist please follow up with ENT. Prescriptions: Loratadine [Claritin] 10 mg PO DAILY #30 tab Is patient prescribed a controlled substance at d/c from ED?: No Referrals: Nilo Alvarez MD [Primary Care Provider] - 1-2 days Wyatt Andino MD [STAFF PHYSICIAN] - 1-2 days Time of Disposition: 10:42
== END 2018-08-19 10:52 | disposition home or self-care (01) ==
LOC: EC 10:00
DX: J30.2 Other seasonal allergic rhinitis (principal); R51 Headache; J34.89 Other specified disorders of nose and nasal sinuses; Z86.14 Personal history of Methicillin resistant Staphylococcus aureus infection; Z87.891 Personal history of nicotine dependence; Z79.899 Other long term (current) drug therapy; Z88.0 Allergy status to penicillin; Z88.1 Allergy status to other antibiotic agents; Z91.041 Radiographic dye allergy status; Z88.5 Allergy status to narcotic agent; Z91.013 Allergy to seafood; Z88.2 Allergy status to sulfonamides; Z88.8 Allergy status to other drugs, medicaments and biological substances
CPT/HCPCS: 99283; 99284

== ENCOUNTER → 2018-10-20 | Outpatient (CLI) | payer OTHER ==
--- NOTE | 2018-10-21 03:14 | MR ---
EXAMINATION TYPE: MR pelvis wo con DATE OF EXAM: 10/20/2018 COMPARISON: HISTORY: severe left side pelvic pain x many years, no gopi given per pt, prev mri at [facility] 2 yea rs ago Standard multiplanar, multisequence MRI departmental protocol Multiplanar, multisequence images of the pelvis were acquired. FINDINGS: There is apparent hysterectomy. Bladder distends smoothly. There is no free fluid in the pe lvis. Distal small bowel appears normal. Sacrum is intact. Lower lumbar spine appears intact with nor mal disc spaces. There is no sign of compression fracture. There is no sign of spinal stenosis. I see no evidence of a pelvic mass. The proximal femurs and hip joints are intact without evidence of hip dysplasia. There is no sign of avascular necrosis. Sacroiliac joints appear intact. I see no focal fortunato ne destruction. IMPRESSION: Negative MR scan of the pelvis. Hysterectomy. No evidence of a pelvic mass no evidence of bony abnorm ality.
== END ==
LOC: RADMRIMAIN 21:22
PROVIDERS: ATTEND Internal Medicine
DX: R10.2 Pelvic and perineal pain (principal); Z90.710 Acquired absence of both cervix and uterus
CPT/HCPCS: 72195

== ENCOUNTER → 2018-10-26 | Outpatient (CLI) | payer OTHER ==
--- NOTE | 2018-10-26 16:37 | XR ---
EXAMINATION TYPE: XR cervical spine comp DATE OF EXAM: 10/26/2018 COMPARISON: None HISTORY: 38-year-old female with radiculopathy and neck pain TECHNIQUE: 5 views FINDINGS: No predental space widening or prevertebral soft tissue swelling. Straightening of the normal cervica l lordosis with preserved alignment. Very minimal uncovertebral joint spurring noted in the mid to lo wer cervical spine. No significant bony neuroforaminal narrowing seen on either side. Normal odontoid view. IMPRESSION: Some mild scattered uncovertebral joint spurring. Straightening of the normal cervical lordosis could be positional or due to muscle spasm. No significant bony neural foraminal narrowing seen.
== END | disposition home or self-care (01) ==
LOC: RADXRMAIN 15:31
PROVIDERS: ATTEND Internal Medicine
DX: M46.02 Spinal enthesopathy, cervical region (principal); M54.12 Radiculopathy, cervical region
CPT/HCPCS: 72050

== ENCOUNTER 2018-11-26 16:13 | Emergency (ER) | payer OTHER ==
[2018-11-26 16:28] VITALS: TEMP 98.1
--- NOTE | 2018-11-26 17:27 | XR ---
EXAMINATION TYPE: XR tibia fibula LT DATE OF EXAM: 11/26/2018 CLINICAL HISTORY: Fall injury with left leg pain TECHNIQUE: Two views of the left leg are obtained. COMPARISON: None. FINDINGS: There is no acute fracture or dislocation seen in the left tibia or fibula. The left knee and ankle joints appear within normal limits. The overlying soft tissue appears unremarkable. IMPRESSION: There is no acute fracture or dislocation seen in the left tibia or fibula.
--- NOTE | 2018-11-26 17:28 | XR ---
EXAMINATION TYPE: XR lumbosacral spine min 4V DATE OF EXAM: 11/26/2018 CLINICAL HISTORY: Fall injury today with pain. TECHNIQUE: Frontal, lateral, and oblique images of the lumbar spine are obtained. COMPARISON: CT abdomen and pelvis from 2013 FINDINGS: There are 5 lumbar type vertebral bodies identified. The lumbar spine shows straightened alignment without evidence of acute fracture or dislocation. Vertebral body heights and disk space he ights are within normal limits. The oblique images appear within normal limits. Cholecystectomy cli ps are now appreciated in the overlying soft tissue. IMPRESSION: No acute fracture or dislocation is seen in the lumbar spine.
--- NOTE | 2018-11-26 17:43 | ED ---
Fall HPI - General Chief Complaint: Fall Stated Complaint: LEFT LEG INJURY Time Seen by Provider: 11/26/18 16:39 Source: patient Limitations: no limitations - History of Present Illness Initial Comments: 38-year-old female presents emergency Department chief complaint of left leg pain, radiating pain from her back. Patient states started after injury at grocery store. Patient states she was pushing the cart states that she had a whole one forward leaning over causing abrasion to her left leg. Denies any head injury no loss conscious. Patient states as time goes on a pain worsens. Patient states she feels relief from the left buttocks down to her toes. She also has pain with inflation of her left leg. Denies any bowel bladder incontinence or retention. Has no abdominal pain. - Related Data Home Medications Medication Instructions Recorded Confirmed Cholecalciferol [Vitamin D3] 1,000 unit PO DAILY 08/19/18 08/19/18 Previous Rx's Medication Instructions Recorded Loratadine [Claritin] 10 mg PO DAILY #30 tab 08/19/18 Ibuprofen [Motrin] 600 mg PO Q8HR PRN #30 tab 11/26/18 Allergies Allergy/AdvReac Type Severity Reaction Status Date / Time ciprofloxacin [From Cipro] Allergy Rash/Hives Verified 11/26/18 16:24 codeine Allergy Anaphylaxis Verified 11/26/18 16:24 Iodinated Contrast- Oral and Allergy Anaphylaxis Verified 11/26/18 16:24 IV Dye [Iodinated Contrast Media - IV Dye] iodine Allergy Anaphylaxis Verified 11/26/18 16:24 morphine Allergy Anaphylaxis Verified 11/26/18 16:24 peas Allergy Throat Verified 11/26/18 16:24 Itches Penicillins Allergy Dyspnea Verified 11/26/18 16:24 shrimp Allergy Unknown Verified 11/26/18 16:24 sulfamethoxazole Allergy Rash/Hives Verified 11/26/18 16:24 [From Bactrim] trimethoprim [From Bactrim] Allergy Rash/Hives Verified 11/26/18 16:24 Review of Systems ROS Statement: Those systems with pertinent positive or pertinent negative responses have been documented in the HPI. ROS Other: All systems not noted in ROS Statement are negative. Past Medical History Past Medical History: GERD/Reflux, Mitral Valve Prolapse (MVP) Additional Past Medical History / Comment(s): POTS, , MTHFR(CLOTTING DISORDER), hydronephrosis History of Any Multi-Drug Resistant Organisms: MRSA Date of last positivie culture/infection: 2006 MDRO Source:: THIGH Past Surgical History: Cholecystectomy, Hysterectomy Additional Past Surgical History / Comment(s): KIDNEY SURGERY Past Psychological History: No Psychological Hx Reported Smoking Status: Former smoker Past Alcohol Use History: None Reported Past Drug Use History: None Reported - Past Family History Father Family Medical History: Cancer General Exam Limitations: no limitations General appearance: alert, in no apparent distress Head exam: Present: atraumatic, normocephalic, normal inspection Neck exam: Present: normal inspection, full ROM. Absent: tenderness, meningismus, lymphadenopathy Respiratory exam: Present: normal lung sounds bilaterally. Absent: respiratory distress, wheezes, rales, rhonchi, stridor Cardiovascular Exam: Present: regular rate, normal rhythm, normal heart sounds. Absent: systolic murmur, diastolic murmur, rubs, gallop, clicks Extremities exam: Present: other (Abrasion on the left li, minimally tender neurovascular intact full range of motion full-strength) Back exam: Present: full ROM. Absent: tenderness, CVA tenderness (R), CVA tenderness (L) Neurological exam: Present: alert, oriented X3, CN II-XII intact, reflexes normal. Absent: motor sensory deficit Course Vital Signs 11/26/18 16:24 Temperature 98.1 F Pulse Rate 88 Respiratory 18 Rate Blood Pressure 135/90 O2 Sat by Pulse 99 Oximetry Medical Decision Making - Medical Decision Making 2-year-old female presented for left leg pain, after a fall. X-rays of review no acute fracture. Patient has a left leg contusion and lumbar radiculopathy. Patient became treated conservatively with anti-inflammatories return parameters were discussed. Disposition Clinical Impression: Fall, Contusion of left leg, Lumbar radiculopathy, acute Disposition: HOME SELF-CARE Condition: Stable Instructions (If sedation given, give patient instructions): Lumbar Radiculopathy (ED), Leg Pain (ED) Additional Instructions: Please return to the Emergency Department if symptoms worsen or any other concerns. Prescriptions: Ibuprofen [Motrin] 600 mg PO Q8HR PRN #30 tab PRN Reason: Pain Is patient prescribed a controlled substance at d/c from ED?: No Referrals: Nilo Alvarez MD [Primary Care Provider] - 1-2 days Time of Disposition: 17:43
[2018-11-26 17:56] VITALS: BP 131/86; PULSE 76; RESP 16
== END 2018-11-26 17:55 | disposition home or self-care (01) ==
LOC: EC 16:13
DX: S80.12XA Contusion of left lower leg, initial encounter (principal); M54.16 Radiculopathy, lumbar region; Z87.891 Personal history of nicotine dependence; Z88.0 Allergy status to penicillin; Z88.1 Allergy status to other antibiotic agents; Z88.2 Allergy status to sulfonamides; Z88.5 Allergy status to narcotic agent; Z91.013 Allergy to seafood; Z91.018 Allergy to other foods; Z91.041 Radiographic dye allergy status; Z91.048 Other nonmedicinal substance allergy status; Z86.14 Personal history of Methicillin resistant Staphylococcus aureus infection; W22.8XXA Striking against or struck by other objects, initial encounter; Y93.89 Activity, other specified; Y92.512 Supermarket, store or market as the place of occurrence of the external cause
CPT/HCPCS: 72110; 99283

== ENCOUNTER 2018-12-06 16:36 | Emergency (ER) | payer OTHER ==
--- NOTE | 2018-12-06 17:22 | ED ---
Arrhythmia/Palpitations HPI - General Chief Complaint: Arrhythmia/Palpitations Stated Complaint: palpitations Time Seen by Provider: 12/06/18 16:58 Source: patient Mode of arrival: ambulatory Limitations: no limitations - History of Present Illness Initial Comments: 38-year-old female with past medical history of POTS disorder, MTHFR gene ( without expression per patient) presenting today for chief complaint of heart palpitations. Patient states the past 6 days she feels as though her heart is fluttering. She was evaluated about 3-4 to go with a Holter monitor and has a mask designer Dr. Weeks where she was told she had periods of tachycardia. There is no evidence of arrhythmia, Parkinson's White or QT prolongation per patient. Patient states that for the past 6 days she has had feeling of fluttering in the center of her chest, she states at times she does feel shortness of breath, patient denies any dyspnea on exertion. Patient states occasionally she feels a pressure in the chest, she denies any ME paresthesias, numbness, tingling, jaw pain, back pain, dizziness, syncope, presyncope, nausea , vomiting, abdominal pain, gastric reflux, indigestion, history of cancer, hemoptysis, calf pain, lower extremity swelling, calf pain, recent surgery, history of blood clot, history of anticoagulation use, hormone replacement use, recent travel. Upon arrival patient is well-appearing there is no signs of acute distress, patient does not appear diaphoretic, negative [place] sign. EKG was obtained revealing normal sinus rhythm with a few premature atrial complexes , there is no ST elevation or depression. There is no findings concerning for acute coronary syndrome on EKG at this time, patient was placed on telemetry. Patient is acting well 100% on room air, heart rate within acceptable limits and blood pressure mildly elevated. Patient is overall well-appearing female. - Related Data Home Medications Medication Instructions Recorded Confirmed Cholecalciferol [Vitamin D3] 1,000 unit PO DAILY 08/19/18 12/06/18 Allergies Allergy/AdvReac Type Severity Reaction Status Date / Time ciprofloxacin [From Cipro] Allergy Rash/Hives Verified 12/06/18 17:40 codeine Allergy Anaphylaxis Verified 12/06/18 17:40 Iodinated Contrast- Oral and Allergy Anaphylaxis Verified 12/06/18 17:40 IV Dye [Iodinated Contrast Media - IV Dye] iodine Allergy Anaphylaxis Verified 12/06/18 17:40 morphine Allergy Anaphylaxis Verified 12/06/18 17:40 peas Allergy Throat Verified 12/06/18 17:40 Itches Penicillins Allergy Dyspnea Verified 12/06/18 17:40 shrimp Allergy Unknown Verified 12/06/18 17:40 sulfamethoxazole Allergy Rash/Hives Verified 12/06/18 17:40 [From Bactrim] trimethoprim [From Bactrim] Allergy Rash/Hives Verified 12/06/18 17:40 Review of Systems ROS Statement: Those systems with pertinent positive or pertinent negative responses have been documented in the HPI. ROS Other: All systems not noted in ROS Statement are negative. Past Medical History Past Medical History: GERD/Reflux, Mitral Valve Prolapse (MVP) Additional Past Medical History / Comment(s): POTS, , MTHFR(CLOTTING DISORDER), hydronephrosis History of Any Multi-Drug Resistant Organisms: MRSA Date of last positivie culture/infection: 2006 MDRO Source:: THIGH Past Surgical History: Cholecystectomy, Hysterectomy Additional Past Surgical History / Comment(s): KIDNEY SURGERY Past Psychological History: No Psychological Hx Reported Smoking Status: Former smoker Past Alcohol Use History: None Reported Past Drug Use History: None Reported - Past Family History Father Family Medical History: Cancer General Exam - General Exam Comments Initial Comments: General: The patient is awake and alert, in no distress, and does not appear acutely ill. Eye: +3mm pupils are equal, round and reactive to light, extra-ocular movements are intact. No nystagmus. There is normal conjunctiva bilaterally. No signs of icterus. Ears, nose, mouth and throat: There are moist mucous membranes and no oral lesions. Neck: The neck is supple, there is no tenderness or JVD. Cardiovascular: There is a regular rate and rhythm. No murmur, rub or gallop is appreciated. Respiratory: Lungs are clear to auscultation, respirations are non-labored, breath sounds are equal. No wheezes, stridor, rales, or rhonchi. Gastrointestinal: Soft, non-distended, non-tender abdomen without masses or organomegaly noted. There is no rebound or guarding present. No CVA tenderness. Bowel sounds are unremarkable. Musculoskeletal: Normal ROM, no tenderness. Strength 5/5. Sensation intact. Radial pulses equal bilaterally 2+. Neurological: A&O x 3. CN II-XII intact, There are no obvious motor or sensory deficits. Coordination appears grossly intact. Speech is normal. Skin: Skin is warm and dry and no rashes or lesions are noted. Negative Homans , no lower extremity edema. No pain to palpation of the lower extremities along the deep venous system. Psychiatric: Cooperative, appropriate mood & affect, normal judgment. Limitations: no limitations Course Vital Signs 12/06/18 12/06/18 16:50 18:50 Temperature 98.1 F Pulse Rate 76 68 Respiratory 18 17 Rate Blood Pressure 132/81 130/78 O2 Sat by Pulse 99 99 Oximetry EKG Findings - EKG Comments: EKG Findings:: A 12-lead EKG was performed and shows the following: Rate is 75bpm, and rhythm is normal sinus. There are normal QRS complexes with occasional premature atrial complexes present and normal R-wave progression. ST segments have no elevation or depression, and MN segments appear normal. MN interval within normal limits. No delta wave Medical Decision Making - Medical Decision Making 38-year-old female presenting for palpitations, history of palpitations in the past. Patient states these felt more persistent lasting 6 days. Patient given aspirin and Nitro-Bid ointment, she states this did not alleviate symptoms. Patient placed on cardiac telemetry, with each reevaluation which was frequently given patient pushing calling for questions patient was normal sinus on telemetry. Initial EKG revealed no acute findings this was evaluated by myself as well as attending provider Dr. Melton. Chest x-ray within normal limits. Patient's D-dimer was elevated, CT angiogram revealed no acute abnormalities, no evidence of pulmonary embolism. At this time low suspicion for acute cardiopulmonary syndrome given patient's symptoms persisted for 6 days with negative initial troponin. Symptoms atypical. More consistent with heart palpitations. At this time I feel patient is stable for discharge with outpatient follow-up with possible holter monitoring and evaluation by patient' s mask designer Dr. Weeks. Patient is agreeable plan discharge. Denies questions at this time. Patient discharged in stable condition appearing well. Patient is aware fall return parameters, denies questions at this time. - Lab Data Result diagrams: 12/06/18 17:34 12/06/18 17:34 Lab Results 12/06/18 12/06/18 12/06/18 Range/Units 17:34 17:34 17:34 WBC 8.1 (3.8-10.6) k/uL RBC 4.89 (3.80-5.40) m/uL Hgb 14.3 (11.4-16.0) gm/dL Hct 41.9 (34.0-46.0) % MCV 85.7 (80.0-100.0) fL MCH 29.3 (25.0-35.0) pg MCHC 34.2 (31.0-37.0) g/dL RDW 13.2 (11.5-15.5) % Plt Count 320 (150-450) k/uL Neutrophils % 69 % Lymphocytes % 22 % Monocytes % 5 % Eosinophils % 2 % Basophils % 1 % Neutrophils # 5.6 (1.3-7.7) k/uL Lymphocytes # 1.7 (1.0-4.8) k/uL Monocytes # 0.4 (0-1.0) k/uL Eosinophils # 0.2 (0-0.7) k/uL Basophils # 0.1 (0-0.2) k/uL PT 9.7 (9.0-12.0) sec INR 0.9 (<1.2) APTT 21.3 L (22.0-30.0) sec D-Dimer (<0.60) mg/L FEU Sodium 140 (137-145) mmol/L Potassium 4.4 (3.5-5.1) mmol/L Chloride 103 (98-107) mmol/L Carbon Dioxide 26 (22-30) mmol/L Anion Gap 11 mmol/L BUN 13 (7-17) mg/dL Creatinine 0.84 (0.52-1.04) mg/dL Est GFR (CKD-EPI)AfAm >90 (>60 ml/min/1.73 sqM) Est GFR (CKD-EPI)NonAf 87 (>60 ml/min/1.73 sqM) Glucose 98 (74-99) mg/dL Calcium 9.3 (8.4-10.2) mg/dL Magnesium 2.0 (1.6-2.3) mg/dL Total Bilirubin 0.6 (0.2-1.3) mg/dL AST 31 (14-36) U/L ALT 28 (9-52) U/L Alkaline Phosphatase 49 (38-126) U/L Total Creatine Kinase (30-135) U/L CK-MB (CK-2) (0.0-2.4) ng/mL CK-MB (CK-2) Rel Index Troponin I (0.000-0.034) ng/mL Total Protein 8.1 (6.3-8.2) g/dL Albumin 4.6 (3.5-5.0) g/dL Lipase 102 (23-300) U/L TSH 0.958 (0.465-4.680) mIU/L Urine Color Urine Appearance (Clear) Urine pH (5.0-8.0) Ur Specific [place] (1.001-1.035) Urine Protein (Negative) Urine Glucose (UA) (Negative) Urine Ketones (Negative) Urine Blood (Negative) Urine Nitrite (Negative) Urine Bilirubin (Negative) Urine Urobilinogen (<2.0) mg/dL Ur Leukocyte Esterase (Negative) Urine RBC (0-5) /hpf Urine WBC (0-5) /hpf Ur Squamous Epith Cells (0-4) /hpf Amorphous Sediment (None) /hpf Urine Bacteria (None) /hpf Urine Mucus (None) /hpf 12/06/18 12/06/18 12/06/18 Range/Units 17:34 17:34 17:43 WBC (3.8-10.6) k/uL RBC (3.80-5.40) m/uL Hgb (11.4-16.0) gm/dL Hct (34.0-46.0) % MCV (80.0-100.0) fL MCH (25.0-35.0) pg MCHC (31.0-37.0) g/dL RDW (11.5-15.5) % Plt Count (150-450) k/uL Neutrophils % % Lymphocytes % % Monocytes % % Eosinophils % % Basophils % % Neutrophils # (1.3-7.7) k/uL Lymphocytes # (1.0-4.8) k/uL Monocytes # (0-1.0) k/uL Eosinophils # (0-0.7) k/uL Basophils # (0-0.2) k/uL PT (9.0-12.0) sec INR (<1.2) APTT (22.0-30.0) sec D-Dimer 0.71 H (<0.60) mg/L FEU Sodium (137-145) mmol/L Potassium (3.5-5.1) mmol/L Chloride (98-107) mmol/L Carbon Dioxide (22-30) mmol/L Anion Gap mmol/L BUN (7-17) mg/dL Creatinine (0.52-1.04) mg/dL Est GFR (CKD-EPI)AfAm (>60 ml/min/1.73 sqM) Est GFR (CKD-EPI)NonAf (>60 ml/min/1.73 sqM) Glucose (74-99) mg/dL Calcium (8.4-10.2) mg/dL Magnesium (1.6-2.3) mg/dL Total Bilirubin (0.2-1.3) mg/dL AST (14-36) U/L ALT (9-52) U/L Alkaline Phosphatase (38-126) U/L Total Creatine Kinase 99 (30-135) U/L CK-MB (CK-2) 0.4 (0.0-2.4) ng/mL CK-MB (CK-2) Rel Index 0.4 Troponin I <0.012 (0.000-0.034) ng/mL Total Protein (6.3-8.2) g/dL Albumin (3.5-5.0) g/dL Lipase (23-300) U/L TSH (0.465-4.680) mIU/L Urine Color Light Yellow Urine Appearance Cloudy H (Clear) Urine pH 6.0 (5.0-8.0) Ur Specific [place] 1.007 (1.001-1.035) Urine Protein Negative (Negative) Urine Glucose (UA) Negative (Negative) Urine Ketones Negative (Negative) Urine Blood Negative (Negative) Urine Nitrite Negative (Negative) Urine Bilirubin Negative (Negative) Urine Urobilinogen <2.0 (<2.0) mg/dL Ur Leukocyte Esterase Negative (Negative) Urine RBC <1 (0-5) /hpf Urine WBC 4 (0-5) /hpf Ur Squamous Epith Cells 12 H (0-4) /hpf Amorphous Sediment Rare H (None) /hpf Urine Bacteria Moderate H (None) /hpf Urine Mucus Rare H (None) /hpf Disposition Clinical Impression: Intermittent palpitations Disposition: HOME SELF-CARE Condition: Good Instructions (If sedation given, give patient instructions): Heart Palpitations (ED) Additional Instructions: Please use medication as discussed. Please follow-up with family doctor tomorrow as scheduled, I recommend Holter monitor. I do recommend following up with your mask designer Dr. Weeks in the next 2-3 days. Please return to emergency room if the symptoms increase or worsen or for any other concerns-as discussed. Is patient prescribed a controlled substance at d/c from ED?: No Referrals: Nilo Alvarez MD [Primary Care Provider] - 1-2 days Time of Disposition: 20:57
[2018-12-06 17:53] LABS: Basophils # (A) 0.1 k/uL (0-0.2); Basophils % (A) 1 %; Eosinophils # (A) 0.2 k/uL (0-0.7); Eosinophils % (A) 2 %; HCT 41.9 % (34.0-46.0); HGB 14.3 gm/dL (11.4-16.0); Lymphocytes # (A) 1.7 k/uL (1.0-4.8); Lymphocytes % (A) 22 %; MCH 29.3 pg (25.0-35.0); MCHC 34.2 g/dL (31.0-37.0); MCV 85.7 fL (80.0-100.0); Mean Platelet Volume 6.7; Monocytes # (A) 0.4 k/uL (0-1.0); Monocytes % (A) 5 %; Neutrophils # (A) 5.6 k/uL (1.3-7.7); Neutrophils % (A) 69 %; Platelet Count 320 k/uL (150-450); RBC 4.89 m/uL (3.80-5.40); RDW 13.2 % (11.5-15.5); WBC 8.1 k/uL (3.8-10.6)
[2018-12-06 18:00] LABS: Amorphous Sediment,Urine Rare /hpf; Appearance,Urine Cloudy (Clear); Bacteria,Urine Moderate /hpf; Bilirubin,Urine Negative (Negative); Blood,Urine Negative (Negative); Color,Urine Light Yellow; Glucose,Urine (UA) Negative (Negative); Ketones,Urine Negative (Negative); Leukocyte Esterase,Urine Negative (Negative); Mucus,Urine Rare /hpf; Nitrite,Urine Negative (Negative); Protein,Urine Negative (Negative); RBC,Urine <1 /hpf (0-5); Specific Gravity,Urine 1.007 (1.001-1.035); Squamous Epithelial Cell,Urine 12 /hpf (0-4); Urobilinogen,Urine <2.0 mg/dL (<2.0); WBC,Urine 4 /hpf (0-5)
--- NOTE | 2018-12-06 18:01 | XR ---
EXAMINATION: XR chest 2V DATE AND TIME: 12/06/2018 5:52 PM CLINICAL INDICATION: PHH; dysrhythmia TECHNIQUE: Departmental protocol COMPARISON: 11/13/2016 FINDINGS: The lungs are clear. The pleural spaces are negative. The cardiac silhouette is not enlarged. The remainder of the mediastinal silhouette is unremarkable. The skeletal structures and soft tissues are negative for acute findings. IMPRESSION: NO ACUTE PROCESS.
[2018-12-06 18:08] LABS: INR 0.9 (<1.2); Prothrombin Time 9.7 sec (9.0-12.0)
[2018-12-06 18:10] LABS: Partial Thromboplastin Time 21.3 sec (22.0-30.0)
[2018-12-06 18:12] LABS: ALT 28 U/L (9-52); AST 31 U/L (14-36); Albumin 4.6 g/dL (3.5-5.0); Alkaline Phosphatase 49 U/L (38-126); Anion Gap 11 mmol/L; Blood Urea Nitrogen 13 mg/dL (7-17); Calcium 9.3 mg/dL (8.4-10.2); Carbon Dioxide 26 mmol/L (22-30); Chloride 103 mmol/L (98-107); Glucose 98 mg/dL (74-99); Lipase 102 U/L (23-300); Sodium 140 mmol/L (137-145); Total Bilirubin 0.6 mg/dL (0.2-1.3); Total Protein 8.1 g/dL (6.3-8.2)
[2018-12-06 18:16] LABS: Potassium 4.4 mmol/L (3.5-5.1)
[2018-12-06 18:25] LABS: Creatine Kinase 99 U/L (30-135)
[2018-12-06] MEDS ORDERED: ASPIRIN 325 MG TAB PO STA (18:34)
[2018-12-06 18:37] LABS: Creatine Kinase MB 0.4 ng/mL (0.0-2.4); Troponin I <0.012 ng/mL (0.000-0.034)
[2018-12-06] MEDS ORDERED: NITROGLYCERIN OINT 1 INCH/GM PACKET TOPICAL STA (18:44)
[2018-12-06] MEDS ORDERED: methylPREDNISolone SOD SUCCI 125 MG/2 ML VIAL IV STA (19:15)
[2018-12-06] MEDS ORDERED: diphenhydrAMINE 50 MG/ML 1 ML VIAL IVP STA (19:16)
[2018-12-06] MEDS ORDERED: FAMOTIDINE 20 MG/2 ML VIAL IV STA (19:16)
--- NOTE | 2018-12-06 20:38 | CT ---
EXAMINATION TYPE: CT chest angio for PE, with contrast and with 3-D reconstruction renderings DATE OF EXAM: 12/06/2018 COMPARISON: 11/29/2018 HISTORY: chest pain radiating down left arm CT DLP: 273.6 mGycm Automated exposure control for dose reduction was used. CONTRAST: CT Chest for pulmonary embolism performed with with IV Contrast, patient injected with 69cc mL of Isovue 370. 3-D reconstructions. FINDINGS: LUNGS AND PLEURAL SPACES AND AIRWAYS: The lungs are grossly clear, there is no concerning parenchymal mass or nodule identified. There is no pleural effusion or pneumothorax seen. The tracheobronchial t ree is patent. MEDIASTINUM: There is satisfactory enhancement of the pulmonary artery and its branches; there is no CT evidence for pulmonary embolism. The aorta has normal appearance. There is no cardiomegaly or fede cardial effusion. No adenopathy. OTHER: No additional significant abnormality is seen. IMPRESSION: No acute process.
[2018-12-06 21:22] VITALS: BP 138/95; PULSE 78; RESP 19; TEMP 98.4
== END 2018-12-06 21:18 | disposition home or self-care (01) ==
LOC: EC 16:36
DX: R00.2 Palpitations (principal); R79.1 Abnormal coagulation profile; R06.02 Shortness of breath; R03.0 Elevated blood-pressure reading, without diagnosis of hypertension; Z87.891 Personal history of nicotine dependence; Z88.0 Allergy status to penicillin; Z88.1 Allergy status to other antibiotic agents; Z88.2 Allergy status to sulfonamides; Z88.5 Allergy status to narcotic agent; Z91.013 Allergy to seafood; Z91.018 Allergy to other foods; Z91.041 Radiographic dye allergy status; Z91.048 Other nonmedicinal substance allergy status; Z86.14 Personal history of Methicillin resistant Staphylococcus aureus infection
CPT/HCPCS: 99285; 96374; 96375 ×2; 36415; 93005; 85379; 80053; 82550; 82553; 83690; 83735; 84443; 84484; 85025; 85610; 85730; 81001; 71046; 71275; J1200; J2930; Q9967

== ENCOUNTER 2019-02-13 18:22 | Emergency (ER) | payer OTHER ==
[2019-02-13 20:36] LABS: Basophils # (A) 0.1 k/uL (0-0.2); Basophils % (A) 1 %; Eosinophils # (A) 0.2 k/uL (0-0.7); Eosinophils % (A) 2 %; HCT 40.6 % (34.0-46.0); HGB 13.6 gm/dL (11.4-16.0); Lymphocytes % (A) 24 %; MCH 28.9 pg (25.0-35.0); MCHC 33.5 g/dL (31.0-37.0); MCV 86.2 fL (80.0-100.0); Mean Platelet Volume 6.3; Monocytes # (A) 0.5 k/uL (0-1.0); Monocytes % (A) 6 %; Neutrophils # (A) 5.3 k/uL (1.3-7.7); Neutrophils % (A) 64 %; Platelet Count 328 k/uL (150-450); RBC 4.71 m/uL (3.80-5.40); RDW 13.3 % (11.5-15.5); WBC 8.3 k/uL (3.8-10.6)
[2019-02-13 20:47] LABS: ALT 26 U/L (9-52); AST 22 U/L (14-36); Albumin 4.6 g/dL (3.5-5.0); Alkaline Phosphatase 58 U/L (38-126); Anion Gap 9 mmol/L; Blood Urea Nitrogen 11 mg/dL (7-17); Calcium 9.6 mg/dL (8.4-10.2); Carbon Dioxide 28 mmol/L (22-30); Chloride 105 mmol/L (98-107); Glucose 81 mg/dL (74-99); Potassium 3.7 mmol/L (3.5-5.1); Sodium 142 mmol/L (137-145); Total Bilirubin 0.3 mg/dL (0.2-1.3); Total Protein 7.7 g/dL (6.3-8.2)
[2019-02-13 20:53] LABS: INR 0.9 (<1.2); Partial Thromboplastin Time 22.8 sec (22.0-30.0); Prothrombin Time 9.9 sec (9.0-12.0)
[2019-02-13 22:02] VITALS: PULSE 72; RESP 16
--- NOTE | 2019-02-13 22:10 | ED ---
General Adult HPI - General Chief complaint: Neuro Symptoms/Deficit Stated complaint: headache and left side facial numbness Time Seen by Provider: 02/13/19 19:40 Source: patient Mode of arrival: ambulatory Limitations: no limitations - History of Present Illness Initial comments: 39-year-old female patient presents to the emergency department today for evaluation of headache and left-sided facial numbness for the last 6 days. Patient states since this morning her left leg is felt tight and she's had some tingling in the left foot. Patient reports a pretty benign medical history other than some generalized weakness she's been experiencing for the last several months. Patient states she is currently being evaluated by a neurologist for this and did have an EMG today. States that that appointment she did discuss her current symptoms with the neurologist he recommended she present to the emergency department have an MRI done to rule out stroke. Patient did have a computed tomography scan of the head on after she saw her primary care physician for her current symptoms. CT was negative. Patient denies any blurred or double vision. States she has had some intermittent nausea with the headache. States she has been taking Tylenol but does not relieve her symptoms at all. She rates her current headache as 6 out of 10 on the pain scale. Denies any difficulty ambulating or speaking. Patient denies any recent rash, fever, chills, shortness breath, chest pain, abdominal pain, nausea, vomiting, diarrhea, constipation, back pain, dizziness, weakness, hematuria, dysuria, urinary urgency, urinary frequency, or any other complaints. - Related Data Home Medications Medication Instructions Recorded Confirmed Cholecalciferol [Vitamin D3] 1,000 unit PO DAILY 08/19/18 02/13/19 L.acidoph,Paracasei, B.lactis 1 cap PO DAILY 02/13/19 02/13/19 [Probiotic] Allergies Allergy/AdvReac Type Severity Reaction Status Date / Time ciprofloxacin [From Cipro] Allergy Rash/Hives Verified 02/13/19 20:13 codeine Allergy Anaphylaxis Verified 02/13/19 20:13 Iodinated Contrast- Oral and Allergy Anaphylaxis Verified 02/13/19 20:13 IV Dye [Iodinated Contrast Media - IV Dye] iodine Allergy Anaphylaxis Verified 02/13/19 20:13 morphine Allergy Anaphylaxis Verified 02/13/19 20:13 peas Allergy Throat Verified 02/13/19 20:13 Itches Penicillins Allergy Dyspnea Verified 02/13/19 20:13 shrimp Allergy Unknown Verified 02/13/19 20:13 sulfamethoxazole Allergy Rash/Hives Verified 02/13/19 20:13 [From Bactrim] trimethoprim [From Bactrim] Allergy Rash/Hives Verified 02/13/19 20:13 Review of Systems ROS Statement: Those systems with pertinent positive or pertinent negative responses have been documented in the HPI. ROS Other: All systems not noted in ROS Statement are negative. Past Medical History Past Medical History: GERD/Reflux, Mitral Valve Prolapse (MVP) Additional Past Medical History / Comment(s): POTS, , MTHFR(CLOTTING DISORDER), hydronephrosis History of Any Multi-Drug Resistant Organisms: MRSA Date of last positivie culture/infection: 2006 MDRO Source:: THIGH Past Surgical History: Cholecystectomy, Hysterectomy Additional Past Surgical History / Comment(s): KIDNEY SURGERY Past Psychological History: No Psychological Hx Reported Smoking Status: Former smoker Past Alcohol Use History: None Reported Past Drug Use History: None Reported - Past Family History Father Family Medical History: Cancer General Exam Limitations: no limitations General appearance: alert, in no apparent distress, other (This is a well-de veloped, well-nourished adult female patient in no acute distress. Vital signs upon presentation are temperature 98.2F, pulse 78, respirations 18, blood pressure 141/91, pulse ox 99% on room air.) Eye exam: Present: normal appearance, PERRL, EOMI. Absent: scleral icterus, conjunctival injection, nystagmus, periorbital swelling ENT exam: Present: normal exam, normal oropharynx, mucous membranes moist Respiratory exam: Present: normal lung sounds bilaterally. Absent: respiratory distress, wheezes, rales, rhonchi, stridor Cardiovascular Exam: Present: regular rate, normal rhythm, normal heart sounds. Absent: systolic murmur, diastolic murmur, rubs, gallop, clicks GI/Abdominal exam: Present: soft, normal bowel sounds. Absent: distended, tenderness, guarding, rebound, rigid Neurological exam: Present: alert, oriented X3, CN II-XII intact Expanded Speech: Present: fluid speech Cranial nerves: EOM's Intact: Normal, Tongue Deviation: Normal, Nystagmus: Normal, Facial Sensation: Abnormal Left Cerebellar function: Finger to Nose: Normal Motor strength exam: RUE: 5, LUE: 5, RLE: 5, LLE: 5 Psychiatric exam: Present: normal affect, normal mood Skin exam: Present: warm, dry, intact, normal color. Absent: rash Course Vital Signs 02/13/19 02/13/19 02/13/19 19:02 21:32 21:40 Temperature 98.2 F Pulse Rate 78 72 Respiratory 18 16 Rate Blood Pressure 141/91 148/95 O2 Sat by Pulse 99 100 98 Oximetry 02/13/19 02/13/19 02/13/19 22:10 22:40 23:05 Temperature 98.4 F Pulse Rate Respiratory Rate Blood Pressure 162/100 145/106 O2 Sat by Pulse 98 100 Oximetry 02/13/19 23:10 Temperature 98.4 F Pulse Rate 72 Respiratory 16 Rate Blood Pressure 165/98 O2 Sat by Pulse 97 Oximetry EKG Findings - EKG Comments: EKG Findings:: EKG obtained at 2030 shows normal sinus rhythm with a ventricular rate is 71, UT interval 174, QRS duration 88, QT 386, QTc 419. No evidence of ST elevation or depression. Medical Decision Making - Medical Decision Making 39-year-old female patient presented to the emergency department today for evaluation of headache and left-sided facial numbness and tingling 6 days. Patient reports increased tightness to the left leg and tingling in the foot that started this morning. Physical examination did reveal some decreased sensation to the left side of the face giving her an NIH score 1. Remainder of physical exam is unremarkable. She was is neurologically intact. Labs reviewed and were unremarkable. I did discuss the case with the neurointerventionalist Dr. David at [facility], he does accept admission. He recommends a CTA head and neck. This was performed, it was normal. Patient will be transferred with an accepting ER physician Dr. Li. Patient was informed of results, plan, and agrees with the plan of care. - Lab Data Result diagrams: 02/13/19 20:16 02/13/19 20:16 Lab Results 02/13/19 02/13/19 02/13/19 Range/Units 20:16 20:16 20:16 WBC 8.3 (3.8-10.6) k/uL RBC 4.71 (3.80-5.40) m/uL Hgb 13.6 (11.4-16.0) gm/dL Hct 40.6 (34.0-46.0) % MCV 86.2 (80.0-100.0) fL MCH 28.9 (25.0-35.0) pg MCHC 33.5 (31.0-37.0) g/dL RDW 13.3 (11.5-15.5) % Plt Count 328 (150-450) k/uL Neutrophils % 64 % Lymphocytes % 24 % Monocytes % 6 % Eosinophils % 2 % Basophils % 1 % Neutrophils # 5.3 (1.3-7.7) k/uL Lymphocytes # 2.0 (1.0-4.8) k/uL Monocytes # 0.5 (0-1.0) k/uL Eosinophils # 0.2 (0-0.7) k/uL Basophils # 0.1 (0-0.2) k/uL PT 9.9 (9.0-12.0) sec INR 0.9 (<1.2) APTT 22.8 (22.0-30.0) sec Sodium 142 (137-145) mmol/L Potassium 3.7 (3.5-5.1) mmol/L Chloride 105 (98-107) mmol/L Carbon Dioxide 28 (22-30) mmol/L Anion Gap 9 mmol/L BUN 11 (7-17) mg/dL Creatinine 0.80 (0.52-1.04) mg/dL Est GFR (CKD-EPI)AfAm >90 (>60 ml/min/1.73 sqM) Est GFR (CKD-EPI)NonAf >90 (>60 ml/min/1.73 sqM) Glucose 81 (74-99) mg/dL Calcium 9.6 (8.4-10.2) mg/dL Total Bilirubin 0.3 (0.2-1.3) mg/dL AST 22 (14-36) U/L ALT 26 (9-52) U/L Alkaline Phosphatase 58 (38-126) U/L Troponin I (0.000-0.034) ng/mL Total Protein 7.7 (6.3-8.2) g/dL Albumin 4.6 (3.5-5.0) g/dL TSH 1.060 (0.465-4.680) mIU/L 02/13/19 Range/Units 20:16 WBC (3.8-10.6) k/uL RBC (3.80-5.40) m/uL Hgb (11.4-16.0) gm/dL Hct (34.0-46.0) % MCV (80.0-100.0) fL MCH (25.0-35.0) pg MCHC (31.0-37.0) g/dL RDW (11.5-15.5) % Plt Count (150-450) k/uL Neutrophils % % Lymphocytes % % Monocytes % % Eosinophils % % Basophils % % Neutrophils # (1.3-7.7) k/uL Lymphocytes # (1.0-4.8) k/uL Monocytes # (0-1.0) k/uL Eosinophils # (0-0.7) k/uL Basophils # (0-0.2) k/uL PT (9.0-12.0) sec INR (<1.2) APTT (22.0-30.0) sec Sodium (137-145) mmol/L Potassium (3.5-5.1) mmol/L Chloride (98-107) mmol/L Carbon Dioxide (22-30) mmol/L Anion Gap mmol/L BUN (7-17) mg/dL Creatinine (0.52-1.04) mg/dL Est GFR (CKD-EPI)AfAm (>60 ml/min/1.73 sqM) Est GFR (CKD-EPI)NonAf (>60 ml/min/1.73 sqM) Glucose (74-99) mg/dL Calcium (8.4-10.2) mg/dL Total Bilirubin (0.2-1.3) mg/dL AST (14-36) U/L ALT (9-52) U/L Alkaline Phosphatase (38-126) U/L Troponin I <0.012 (0.000-0.034) ng/mL Total Protein (6.3-8.2) g/dL Albumin (3.5-5.0) g/dL TSH (0.465-4.680) mIU/L - Radiology Data Radiology results: report reviewed, image reviewed CT angiography head and neck with IV contrast was obtained. Report was reviewed in its entirety. Impression by Dr. Lacey shows normal head CT A, normal neck CTA. Disposition Clinical Impression: Headache, Paresthesia, CVA (cerebral vascular accident) Disposition: OTHER INSTITUTION NOT DEFINED Referrals: Nilo Alvarez MD [Primary Care Provider] - 1-2 days - Out of Hospital Transfer - Req. Specs Out of Hospital Transfer - Requested Specifics: Other Emergency Center ([facility])
[2019-02-13] MEDS ORDERED: ASPIRIN 325 MG TAB PO STA (22:15)
[2019-02-13] MEDS ORDERED: FAMOTIDINE 20 MG/2 ML VIAL IV STA (22:18)
[2019-02-13] MEDS ORDERED: diphenhydrAMINE 50 MG/ML 1 ML VIAL IVP STA (22:18)
[2019-02-13] MEDS ORDERED: methylPREDNISolone SOD SUCCI 125 MG/2 ML VIAL IV STA (22:18)
[2019-02-13 23:12] VITALS: TEMP 98.4
[2019-02-13 23:13] VITALS: BP 165/98
--- NOTE | 2019-02-13 23:17 | CT ---
EXAM: CT Angiography Head Without And With Intravenous Contrast CLINICAL HISTORY: ITS.REASON CT Reason: Pain TECHNIQUE: Axial computed tomographic angiography images of the head without and with intravenous contrast using CT angiography protocol. This CT exam was performed using one or more of the following dose reduction techniques: automated exposure control, adjustment of the mA and/or kV according to patient size, and/or use of iterative reconstruction technique. 3D reconstructed images were created and reviewed. COMPARISON: No relevant prior studies available. FINDINGS: VASCULATURE: Right internal carotid artery: No suspicious findings. Intracranial segment is patent with no significant stenosis. No aneurysm. Right anterior cerebral artery: Unremarkable. No occlusion or significant stenosis. No aneurysm. Right middle cerebral artery: Unremarkable. No occlusion or significant stenosis. No aneurysm. Right posterior cerebral artery: Unremarkable. No occlusion or significant stenosis. No aneurysm. Right vertebral artery: Unremarkable as visualized. Left internal carotid artery: No suspicious findings. Intracranial segment is patent with no significant stenosis. No aneurysm. Left anterior cerebral artery: Unremarkable. No occlusion or significant stenosis. No aneurysm. Left middle cerebral artery: Unremarkable. No occlusion or significant stenosis. No aneurysm. Left posterior cerebral artery: Unremarkable. No occlusion or significant stenosis. No aneurysm. Left vertebral artery: Unremarkable as visualized. Basilar artery: Unremarkable. No occlusion or significant stenosis. No aneurysm. HEAD: Brain: No suspicious findings. No hemorrhage. No edema. Normal enhancement. Ventricles: Unremarkable. No ventriculomegaly. Bones/joints: No acute fracture. Soft tissues: Unremarkable. Sinuses: Unremarkable as visualized. No acute sinusitis. Mastoid air cells: Unremarkable as visualized. No mastoid effusion. IMPRESSION: Normal head CTA. EXAM: CT Angiography Neck Without And With Intravenous Contrast CLINICAL HISTORY: ITS.REASON CT Reason: Pain TECHNIQUE: Axial computed tomographic angiography images of the neck without and with intravenous contrast using CT angiography protocol. This CT exam was performed using one or more of the following dose reduction techniques: automated exposure control, adjustment of the mA and/or kV according to patient size, and/or use of iterative reconstruction technique. MIP reconstructed images were created and reviewed. COMPARISON: No relevant prior studies available. FINDINGS: VASCULATURE: Right common carotid artery: Unremarkable. No significant stenosis. No dissection or occlusion. Right internal carotid artery: Unremarkable. Extracranial segment is patent with no significant stenosis. No dissection or occlusion. Right external carotid artery: Unremarkable. No occlusion. Right vertebral artery: Unremarkable. No significant stenosis. No dissection or occlusion. Left common carotid artery: Unremarkable. No significant stenosis. No dissection or occlusion. Left internal carotid artery: Unremarkable. Extracranial segment is patent with no significant stenosis. No dissection or occlusion. Left external carotid artery: Unremarkable. No occlusion. Left vertebral artery: Unremarkable. No significant stenosis. No dissection or occlusion. NECK: Bones/joints: No acute fracture. No dislocation. Soft tissues: Unremarkable as visualized. No mass. CAROTID STENOSIS REFERENCE USING NASCET CRITERIA: % ICA stenosis = (1 - narrowest ICA diameter/diameter of distal cervical ICA) x 100. Mild - <50% stenosis. Moderate - 50-69% stenosis. Severe - 70-94% stenosis. Near occlusion - 95-99% stenosis. Occluded - 100% stenosis. IMPRESSION: Normal neck CTA.
== END 2019-02-13 23:35 | disposition other institution (70) ==
LOC: EC 18:22
DX: I63.9 Cerebral infarction, unspecified (principal); R29.700 NIHSS score 0; Z86.14 Personal history of Methicillin resistant Staphylococcus aureus infection; Z87.891 Personal history of nicotine dependence; Z88.1 Allergy status to other antibiotic agents; Z88.5 Allergy status to narcotic agent; Z91.041 Radiographic dye allergy status; Z91.018 Allergy to other foods; Z88.0 Allergy status to penicillin; Z91.013 Allergy to seafood; Z88.2 Allergy status to sulfonamides
CPT/HCPCS: 36415; 93005; 80053; 84443; 84484; 85025; 85610; 85730; 70496; 70498; 99285; 96374; 96375 ×2; J1200; J2930; Q9967

== ENCOUNTER → 2019-05-02 | Outpatient (CLI) | payer OTHER ==
--- NOTE | 2019-05-02 10:47 | USB ---
Reason for exam: clinical finding. History: Family history of breast cancer in maternal grandmother at age 70. Indicated problem(s): pain in the left breast. 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 US Breast LT Left complete breast ultrasound includes all four quadrants, the retroareolar region and axilla. Finding demonstrates no cystic or solid lesion seen. No sonographic abnormality. These results were verbally communicated with the patient and result sheet given to the patient on 05/02/19. ASSESSMENT: Negative, BI-RAD 1 RECOMMENDATION: Return to routine screening mammogram schedule for both breasts. Back on schedule for May 2019.
== END | disposition home or self-care (01) ==
LOC: RADUSWWP 09:48
PROVIDERS: ATTEND Family Medicine
DX: N63.20 Unspecified lump in the left breast, unspecified quadrant (principal)

== ENCOUNTER 2019-07-27 17:44 | Emergency (ER) | payer OTHER ==
--- NOTE | 2019-07-27 19:04 | ED ---
Chest Pain HPI - General Chief Complaint: Chest Pain Stated Complaint: CHEST PAIN Time Seen by Provider: 07/27/19 18:52 Source: patient, RN notes reviewed, old records reviewed Mode of arrival: ambulatory Limitations: no limitations - History of Present Illness Initial Comments: This is a 39-year-old female the ER for evaluation. Patient was a left-sided chest pain to the back. Patient has no prior history of significant heart disease, she has had some tachycardia in the past as of a family history including WPW and Az for prolonged QT. Patient himself has had no issues with the above. She has no high cholesterol no diabetes no high blood pressure is a nonsmoker. Patient was seen at urgent care earlier today with an EKG given a GI cocktail no improvement in symptoms symptoms with a persistent throughout the day. No current shortness of breath. Patient does have occasional recurrence of the pain left-sided against the left shoulder. No recent travels or sick contacts fevers. Patient has history of TIA, shows left-sided numbness tingling in the face as well as a headache MD Complaint: chest pain (Left sided) -: hour(s) Onset: during rest, during exertion Pain Location: left chest Pain Radiation: LUE Severity: mild Severity scale (1-10): 3 Quality: heaviness, sharp Consistency: intermittent Improves With: nothing Worsens With: nothing Anginal Symptoms: other (none) Other Symptoms: palpitations Treatments Prior to Arrival: none - Related Data Home Medications Medication Instructions Recorded Confirmed No Known Home Medications 07/27/19 07/27/19 Allergies Allergy/AdvReac Type Severity Reaction Status Date / Time ciprofloxacin [From Cipro] Allergy Rash/Hives Verified 07/27/19 20:27 codeine Allergy Anaphylaxis Verified 07/27/19 20:27 Iodinated Contrast Media Allergy Anaphylaxis Verified 07/27/19 20:27 [Iodinated Contrast Media - IV Dye] iodine Allergy Anaphylaxis Verified 07/27/19 20:27 morphine Allergy Anaphylaxis Verified 07/27/19 20:27 peas Allergy Throat Verified 07/27/19 20:27 Itches Penicillins Allergy Dyspnea Verified 07/27/19 20:27 shrimp Allergy Unknown Verified 07/27/19 20:27 sulfamethoxazole Allergy Rash/Hives Verified 07/27/19 20:27 [From Bactrim] trimethoprim [From Bactrim] Allergy Rash/Hives Verified 07/27/19 20:27 Review of Systems ROS Statement: Those systems with pertinent positive or pertinent negative responses have been documented in the HPI. ROS Other: All systems not noted in ROS Statement are negative. EKG Findings - EKG Comments: EKG Findings:: EKG shows sinus rhythm rate of 64, [place] 164, QRS 80, QTC 400 Past Medical History Past Medical History: CVA/TIA, GERD/Reflux, Mitral Valve Prolapse (MVP) Additional Past Medical History / Comment(s): POTS, , MTHFR(CLOTTING DISORDER), hydronephrosis History of Any Multi-Drug Resistant Organisms: MRSA Date of last positivie culture/infection: 2006 MDRO Source:: THIGH Past Surgical History: Cholecystectomy, Hysterectomy Additional Past Surgical History / Comment(s): KIDNEY SURGERY Past Psychological History: No Psychological Hx Reported Smoking Status: Former smoker Past Alcohol Use History: None Reported Past Drug Use History: None Reported - Past Family History Father Family Medical History: Cancer General Exam Limitations: no limitations General appearance: alert, in no apparent distress Head exam: Present: atraumatic, normocephalic, normal inspection Eye exam: Present: normal appearance, PERRL, EOMI. Absent: scleral icterus, conjunctival injection, periorbital swelling ENT exam: Present: normal exam, mucous membranes moist Neck exam: Present: normal inspection. Absent: tenderness, meningismus, lympha denopathy Respiratory exam: Present: normal lung sounds bilaterally. Absent: respiratory distress, wheezes, rales, rhonchi, stridor Cardiovascular Exam: Present: regular rate, normal rhythm, normal heart sounds. Absent: systolic murmur, diastolic murmur, rubs, gallop, clicks GI/Abdominal exam: Present: soft, normal bowel sounds. Absent: distended, tenderness, guarding, rebound, rigid Extremities exam: Present: normal inspection, full ROM, normal capillary refill. Absent: tenderness, pedal edema, joint swelling, calf tenderness Back exam: Present: normal inspection Neurological exam: Present: alert, oriented X3, CN II-XII intact Psychiatric exam: Present: normal affect, normal mood Skin exam: Present: warm, dry, intact, normal color. Absent: rash Course Vital Signs 07/27/19 07/27/19 07/27/19 17:55 19:32 20:00 Temperature 97.8 F Pulse Rate 69 64 Pulse Rate [ 62 Apical] Respiratory 20 16 Rate Blood Pressure 135/89 137/89 O2 Sat by Pulse 99 99 Oximetry 07/27/19 07/27/19 20:30 20:35 Temperature Pulse Rate 69 Pulse Rate [ Apical] Respiratory 20 Rate Blood Pressure 131/97 O2 Sat by Pulse 99 2 L Oximetry - Reevaluation(s) Reevaluation #1: 07/27/19 19:04 medical record is reviewed Reevaluation #2: 07/27/19 22:49 Patient was comfortable being discharged after initial evaluation, computed tomography scan was negative, patient for her results, patient can be discharged home Chest Pain MDM - MDM 39 female with atypical nonspecific chest pain. Computed tomography scan EKG and troponin are negative here. Patient will be discharged Disposition Clinical Impression: Chest pain, Atypical chest pain Disposition: HOME SELF-CARE Condition: Good Instructions (If sedation given, give patient instructions): Chest Pain (ED) Is patient prescribed a controlled substance at d/c from ED?: No Referrals: Dexter Rendon MD [Primary Care Provider] - 1-2 days
[2019-07-27 19:49] LABS: Basophils % (A) 1 %; Eosinophils # (A) 0.3 k/uL (0-0.7); Eosinophils % (A) 3 %; HCT 42.2 % (34.0-46.0); HGB 14.3 gm/dL (11.4-16.0); Lymphocytes # (A) 2.5 k/uL (1.0-4.8); Lymphocytes % (A) 29 %; MCH 29.5 pg (25.0-35.0); MCHC 33.8 g/dL (31.0-37.0); MCV 87.1 fL (80.0-100.0); Mean Platelet Volume 6.1; Monocytes # (A) 0.5 k/uL (0-1.0); Monocytes % (A) 6 %; Neutrophils % (A) 59 %; Platelet Count 387 k/uL (150-450); RBC 4.84 m/uL (3.80-5.40); RDW 13.1 % (11.5-15.5); WBC 8.5 k/uL (3.8-10.6)
[2019-07-27 20:04] LABS: Albumin 4.5 g/dL (3.5-5.0); Calcium 9.9 mg/dL (8.4-10.2); Total Bilirubin 0.5 mg/dL (0.2-1.3); Total Protein 7.9 g/dL (6.3-8.2)
[2019-07-27 20:13] LABS: D-Dimer 0.28 mg/L FEU (<0.60); INR 0.9 (<1.2); Partial Thromboplastin Time 25.1 sec (22.0-30.0)
[2019-07-27] MEDS ORDERED: methylPREDNISolone SOD SUCCI 125 MG/2 ML VIAL IV STA (21:14)
[2019-07-27] MEDS ORDERED: FAMOTIDINE 20 MG/2 ML VIAL IV STA (21:14)
[2019-07-27] MEDS ORDERED: diphenhydrAMINE 50 MG/ML 1 ML VIAL IVP STA (21:14)
--- NOTE | 2019-07-27 22:42 | CT ---
ADDENDUM - Added by Zoila Robins M.D. on 07/27/2019 10:55 PM (-07:00) DLP is 278 mGy-cm. Tech would not provide CTDI. EXAM: CT Angiography Chest With Intravenous Contrast CLINICAL HISTORY: ITS.REASON CT Reason: cp TECHNIQUE: Axial computed tomographic angiography images of the chest with intravenous contrast. This CT exam was performed using one or more of the following dose reduction techniques: automated exposure control, adjustment of the mA and/or kV according to patient size, and/or use of iterative reconstruction technique. MIP reconstructed images were created and reviewed. COMPARISON: CT chest on 12/06/2018 FINDINGS: Lung parenchyma: Mild scarring at the lung apices. No focal consolidation. No nodule. Pleural space: Normal. No pleural effusion or pneumothorax. Mediastinum/pearl: Normal. No mass or lymphadenopathy. Heart: Normal. No cardiomegaly or pericardial effusion. Vasculature: Normal. No pulmonary embolus. Aorta: Normal. No aneurysm or dissection. Airways: Patent. Bones: Normal. No bony lesion or acute fracture. Muscles: No mass. Subcutaneous tissues: Normal. Upper abdomen: Prior cholecystectomy. Calcified granulomas in the spleen. IMPRESSION: 1. No pulmonary embolus identified. 2. No aortic aneurysm or dissection. 3. No acute pulmonary parenchymal abnormality identified.
[2019-07-27 23:03] VITALS: BP 134/79; PULSE 87; RESP 18; TEMP 98.4
--- NOTE | 2019-07-28 12:27 | XR ---
EXAMINATION TYPE: XR chest 2V DATE OF EXAM: 07/27/2019 COMPARISON: 12/06/2018 HISTORY: Chest pain TECHNIQUE: Frontal and lateral views of the chest are obtained. FINDINGS: Heart and mediastinum are normal. Lungs are clear. Diaphragm is normal. Bony thorax appear s normal. IMPRESSION: Normal chest. No change.
== END 2019-07-27 23:03 | disposition home or self-care (01) ==
LOC: EC 17:44
DX: R07.89 Other chest pain (principal); I34.1 Nonrheumatic mitral (valve) prolapse; K21.9 Gastro-esophageal reflux disease without esophagitis; R00.0 Tachycardia, unspecified; R00.2 Palpitations; Z88.1 Allergy status to other antibiotic agents; Z88.5 Allergy status to narcotic agent; Z91.041 Radiographic dye allergy status; Z91.048 Other nonmedicinal substance allergy status; Z88.0 Allergy status to penicillin; Z88.2 Allergy status to sulfonamides; Z86.14 Personal history of Methicillin resistant Staphylococcus aureus infection; Z86.73 Personal history of transient ischemic attack (TIA), and cerebral infarction without residual deficits; Z87.891 Personal history of nicotine dependence
CPT/HCPCS: 36415; 85379; 83880; 80053; 83690; 83735; 84484; 85025; 85610; 85730; 71046; 71275; 99285; 96374; 96375 ×2; J1200; J2930; Q9967

== ENCOUNTER 2019-09-01 13:44 | Emergency (ER) | payer OTHER ==
--- NOTE | 2019-09-01 14:44 | ED ---
General Adult HPI - General Chief complaint: Shortness of Breath Stated complaint: FLAVIO Time Seen by Provider: 09/01/19 14:14 Source: patient Mode of arrival: ambulatory Limitations: no limitations - History of Present Illness Initial comments: Patient is a 39-year-old female presenting to the emergency department with a chief complaint of back pain, shortness of breath and chest tightness. Patient reports about one week ago she developed a gradual onset of upper thoracic pain back which she attributes to the new job. Patient reports she stands for about 10 hours a day and the pain seems to be exacerbated with specific positional movements. Patient reports for lasted issues develop occasional shortness of breath with chest tightness/pressure. Patient reports this was a gradual onset, however the pain does not radiate to the back. Patient reports the pressure exacerbated with with inspiration. Patient denies any episodes of lightheadedne ss, dizziness, blurry vision, headache. Patient reports she currently sees a neurologist for her chronic tenderness. She states that she is supposed to be evaluated at [facility]. Patient denies one sided weakness or paresthesias. Patient denies exogenous estrogen use, history of DVT, prolonged periods of activity, recent hospitalizations, chemotherapy or cancer. - Related Data Home Medications Medication Instructions Recorded Confirmed No Known Home Medications 07/27/19 07/27/19 Allergies Allergy/AdvReac Type Severity Reaction Status Date / Time ciprofloxacin [From Cipro] Allergy Rash/Hives Verified 09/01/19 13:58 codeine Allergy Anaphylaxis Verified 09/01/19 13:58 Iodinated Contrast Media Allergy Anaphylaxis Verified 09/01/19 13:58 [Iodinated Contrast Media - IV Dye] iodine Allergy Anaphylaxis Verified 09/01/19 13:58 morphine Allergy Anaphylaxis Verified 09/01/19 13:58 peas Allergy Throat Verified 09/01/19 13:58 Itches Penicillins Allergy Dyspnea Verified 09/01/19 13:58 shrimp Allergy Unknown Verified 09/01/19 13:58 sulfamethoxazole Allergy Rash/Hives Verified 09/01/19 13:58 [From Bactrim] trimethoprim [From Bactrim] Allergy Rash/Hives Verified 09/01/19 13:58 Review of Systems ROS Statement: Those systems with pertinent positive or pertinent negative responses have been documented in the HPI. ROS Other: All systems not noted in ROS Statement are negative. Past Medical History Past Medical History: CVA/TIA, GERD/Reflux, Mitral Valve Prolapse (MVP) Additional Past Medical History / Comment(s): POTS, , MTHFR(CLOTTING DISORDER), hydronephrosis History of Any Multi-Drug Resistant Organisms: MRSA Date of last positivie culture/infection: 2006 MDRO Source:: THIGH Past Surgical History: Cholecystectomy, Hysterectomy Additional Past Surgical History / Comment(s): KIDNEY SURGERY Past Psychological History: No Psychological Hx Reported Smoking Status: Former smoker Past Alcohol Use History: None Reported Past Drug Use History: None Reported - Past Family History Father Family Medical History: Cancer General Exam Limitations: no limitations General appearance: alert, in no apparent distress Head exam: Present: atraumatic, normocephalic, normal inspection Eye exam: Present: normal appearance, PERRL, EOMI Pupils: Present: normal accommodation ENT exam: Present: normal exam, normal oropharynx, mucous membranes moist, TM's normal bilaterally, normal external ear exam Neck exam: Present: normal inspection, full ROM Respiratory exam: Present: normal lung sounds bilaterally, chest wall tenderness Cardiovascular Exam: Present: regular rate, normal rhythm, normal heart sounds Extremities exam: Present: normal inspection, full ROM, normal capillary refill, other (+2 ulnar and radial pulses bilaterally. +2 dorsalis pedis and posterior tibialis bilaterally.) Back exam: Present: normal inspection, full ROM, tenderness, paraspinal tenderness (Bilateral paraspinal tenderness in the thoracic region). Absent: CVA tenderness (R), CVA tenderness (L), muscle spasm, vertebral tenderness, rash noted Neurological exam: Present: alert, oriented X3 Psychiatric exam: Present: normal affect, normal mood Skin exam: Present: warm, intact, normal color Course Vital Signs 09/01/19 09/01/19 09/01/19 13:55 14:58 15:58 Temperature 98 F Pulse Rate 82 81 76 Respiratory 20 16 18 Rate Blood Pressure 139/92 O2 Sat by Pulse 100 99 98 Oximetry 09/01/19 17:00 Temperature 98.0 F Pulse Rate 82 Respiratory 16 Rate Blood Pressure 131/86 O2 Sat by Pulse 97 Oximetry Medical Decision Making - Medical Decision Making Patient is a 39-year-old female presenting to the emergency department with chief complaint of chest tightness and shortness of breath. This is benign one issue for the past day. EKG showing normal sinus rhythm with no ST changes. Chest x-rays unremarkable. Initial troponins are negative. Last laboratory results are unremarkable. The chest pressure appears to be exacerbated with full inspiration and is reproducible with palpation. D-dimer negative. I suspect the patient to have pleurisy rather than cardiac related issue. The back pain appears to be musculoskeletal in nature. I have very low suspicion for aortic dissection. Hip patient has no focal deficits. No sudden onset of crushing chest pain that is radiating to the back. BP pressure stable. Strict return parameters were thoroughly discussed with patient was understanding and agreeable. Patient was to follow with primary care. Case discussed physician. - Lab Data Result diagrams: 09/01/19 14:30 09/01/19 14:30 Lab Results 09/01/19 09/01/19 09/01/19 Range/Units 14:30 14:30 14:30 WBC 6.1 (3.8-10.6) k/uL RBC 4.98 (3.80-5.40) m/uL Hgb 14.3 (11.4-16.0) gm/dL Hct 43.4 (34.0-46.0) % MCV 87.2 (80.0-100.0) fL MCH 28.8 (25.0-35.0) pg MCHC 33.0 (31.0-37.0) g/dL RDW 12.8 (11.5-15.5) % Plt Count 322 (150-450) k/uL Neutrophils % 65 % Lymphocytes % 24 % Monocytes % 6 % Eosinophils % 2 % Basophils % 1 % Neutrophils # 4.0 (1.3-7.7) k/uL Lymphocytes # 1.5 (1.0-4.8) k/uL Monocytes # 0.4 (0-1.0) k/uL Eosinophils # 0.1 (0-0.7) k/uL Basophils # 0.1 (0-0.2) k/uL PT 10.0 (9.0-12.0) sec INR 0.9 (<1.2) APTT 22.0 (22.0-30.0) sec D-Dimer 0.35 (<0.60) mg/L FEU Sodium 141 (137-145) mmol/L Potassium 4.2 (3.5-5.1) mmol/L Chloride 106 (98-107) mmol/L Carbon Dioxide 23 (22-30) mmol/L Anion Gap 12 mmol/L BUN 9 (7-17) mg/dL Creatinine 0.86 (0.52-1.04) mg/dL Est GFR (CKD-EPI)AfAm >90 (>60 ml/min/1.73 sqM) Est GFR (CKD-EPI)NonAf 85 (>60 ml/min/1.73 sqM) Glucose 103 H (74-99) mg/dL Calcium 9.1 (8.4-10.2) mg/dL Magnesium 2.1 (1.6-2.3) mg/dL Total Bilirubin 0.8 (0.2-1.3) mg/dL AST 30 (14-36) U/L ALT <6 L (9-52) U/L Alkaline Phosphatase 69 (38-126) U/L Troponin I (0.000-0.034) ng/mL Total Protein 8.0 (6.3-8.2) g/dL Albumin 4.5 (3.5-5.0) g/dL 09/01/19 Range/Units 14:30 WBC (3.8-10.6) k/uL RBC (3.80-5.40) m/uL Hgb (11.4-16.0) gm/dL Hct (34.0-46.0) % MCV (80.0-100.0) fL MCH (25.0-35.0) pg MCHC (31.0-37.0) g/dL RDW (11.5-15.5) % Plt Count (150-450) k/uL Neutrophils % % Lymphocytes % % Monocytes % % Eosinophils % % Basophils % % Neutrophils # (1.3-7.7) k/uL Lymphocytes # (1.0-4.8) k/uL Monocytes # (0-1.0) k/uL Eosinophils # (0-0.7) k/uL Basophils # (0-0.2) k/uL PT (9.0-12.0) sec INR (<1.2) APTT (22.0-30.0) sec D-Dimer (<0.60) mg/L FEU Sodium (137-145) mmol/L Potassium (3.5-5.1) mmol/L Chloride (98-107) mmol/L Carbon Dioxide (22-30) mmol/L Anion Gap mmol/L BUN (7-17) mg/dL Creatinine (0.52-1.04) mg/dL Est GFR (CKD-EPI)AfAm (>60 ml/min/1.73 sqM) Est GFR (CKD-EPI)NonAf (>60 ml/min/1.73 sqM) Glucose (74-99) mg/dL Calcium (8.4-10.2) mg/dL Magnesium (1.6-2.3) mg/dL Total Bilirubin (0.2-1.3) mg/dL AST (14-36) U/L ALT (9-52) U/L Alkaline Phosphatase (38-126) U/L Troponin I <0.012 (0.000-0.034) ng/mL Total Protein (6.3-8.2) g/dL Albumin (3.5-5.0) g/dL Disposition Clinical Impression: Chest tightness, Shortness of breath, Pleurisy, Costochondritis Disposition: HOME SELF-CARE Condition: Stable Instructions (If sedation given, give patient instructions): Chest Pain (DC), Pleurisy (DC) Additional Instructions: Please follow with primary care. Please return to emergency department if symptoms worsen. Is patient prescribed a controlled substance at d/c from ED?: No Referrals: Dexter Rendon MD [Primary Care Provider] - 1-2 days Time of Disposition: 16:55
[2019-09-01 15:01] LABS: Basophils # (A) 0.1 k/uL (0-0.2); Basophils % (A) 1 %; Eosinophils # (A) 0.1 k/uL (0-0.7); Eosinophils % (A) 2 %; HCT 43.4 % (34.0-46.0); HGB 14.3 gm/dL (11.4-16.0); Lymphocytes # (A) 1.5 k/uL (1.0-4.8); Lymphocytes % (A) 24 %; MCH 28.8 pg (25.0-35.0); MCV 87.2 fL (80.0-100.0); Mean Platelet Volume 6.1; Monocytes # (A) 0.4 k/uL (0-1.0); Monocytes % (A) 6 %; Neutrophils % (A) 65 %; Platelet Count 322 k/uL (150-450); RBC 4.98 m/uL (3.80-5.40); RDW 12.8 % (11.5-15.5); WBC 6.1 k/uL (3.8-10.6)
[2019-09-01 15:11] LABS: ALT <6 U/L (9-52); AST 30 U/L (14-36); African American GFR (CKD) >90 (>60 ml/min/1.73 sqM); Albumin 4.5 g/dL (3.5-5.0); Alkaline Phosphatase 69 U/L (38-126); Anion Gap 12 mmol/L; Blood Urea Nitrogen 9 mg/dL (7-17); Calcium 9.1 mg/dL (8.4-10.2); Carbon Dioxide 23 mmol/L (22-30); Chloride 106 mmol/L (98-107); Glucose 103 mg/dL (74-99); Magnesium 2.1 mg/dL (1.6-2.3); Sodium 141 mmol/L (137-145); Total Bilirubin 0.8 mg/dL (0.2-1.3)
[2019-09-01 15:12] LABS: Potassium 4.2 mmol/L (3.5-5.1)
[2019-09-01 15:24] LABS: D-Dimer 0.35 mg/L FEU (<0.60); INR 0.9 (<1.2)
--- NOTE | 2019-09-01 15:34 | XR ---
EXAMINATION TYPE: XR chest 2V DATE OF EXAM: 09/01/2019 COMPARISON: 07/27/2019 HISTORY: Shortness of breath and chest tightness TECHNIQUE: Frontal and lateral views of the chest are obtained. FINDINGS: There is no focal air space opacity, pleural effusion, or pneumothorax seen. Pulmonary hy perinflation is seen with slight flattening of the diaphragms on the lateral view. This may relate to or degree of inspiration versus COPD. Correlate with pulmonary function tests. The cardiac silhouett e size is within normal limits. The osseous structures are intact. Surgical clips from prior cholec ystectomy. IMPRESSION: No acute cardiopulmonary process.
[2019-09-01 17:23] VITALS: BP 131/86; PULSE 82; RESP 16; TEMP 98
== END 2019-09-01 17:00 | disposition home or self-care (01) ==
LOC: EC 13:44
DX: M94.0 Chondrocostal junction syndrome [Tietze] (principal); R09.1 Pleurisy; Z88.1 Allergy status to other antibiotic agents; Z91.041 Radiographic dye allergy status; Z91.018 Allergy to other foods; Z88.5 Allergy status to narcotic agent; Z88.0 Allergy status to penicillin; Z91.013 Allergy to seafood; Z88.2 Allergy status to sulfonamides; Z86.73 Personal history of transient ischemic attack (TIA), and cerebral infarction without residual deficits; Z86.79 Personal history of other diseases of the circulatory system; Z87.891 Personal history of nicotine dependence; Z86.14 Personal history of Methicillin resistant Staphylococcus aureus infection
CPT/HCPCS: 36415; 71046; 80053; 83735; 84484; 85025; 85379; 85610; 85730; 93005; 99285

== ENCOUNTER → 2019-10-05 | Outpatient (CLI) | payer OTHER ==
--- NOTE | 2019-10-05 14:14 | MR ---
EXAMINATION TYPE: MR wrist LT wo con DATE OF EXAM: 10/05/2019 COMPARISON: None HISTORY: Left wrist pain x 1-2 years Standard multiplanar, multisequence MRI departmental protocol Multiplanar, multisequence images of the left wrist were acquired. Diffusion weighted imaging was per formed. FINDINGS: Bone marrow signal is homogeneous throughout without evidence for fracture or bone contusion. No evid ence for dislocation. Triangular fibrocartilage complex has a normal appearance without evidence for partial or complete tear. Intercarpal ligaments are intact. Radiocarpal and ulnocarpal joint spaces a re within normal limits. No soft tissue masses are seen. No evidence for free fluid. Tendinous and li gamentous structures appear to be intact. IMPRESSION: Unremarkable MRI of the left wrist.
== END ==
LOC: RADMRIMAIN 10:51
PROVIDERS: ATTEND Orthopaedic Surgery Hand Surgery
DX: M25.532 Pain in left wrist (principal)

== ENCOUNTER → 2019-10-06 | Outpatient (CLI) | payer OTHER ==
[2019-10-06 23:48] LABS: Chol/HDL Ratio 3.73; LDL Cholesterol,Calculated 141.4 mg/dL (0.0-131.0); VLDL Calculation 19.6 mg/dL (5.00-40.00)
== END | disposition home or self-care (01) ==
LOC: LABWHC1 15:33
PROVIDERS: ATTEND Physician Assistant
DX: R53.83 Other fatigue (principal); R00.2 Palpitations; Z86.73 Personal history of transient ischemic attack (TIA), and cerebral infarction without residual deficits
CPT/HCPCS: 36415; 80061; 82306; 82607; 84443; 84481

== ENCOUNTER → 2019-12-06 | Outpatient (CLI) | payer OTHER ==
--- NOTE | 2019-12-06 16:53 | XR ---
EXAMINATION TYPE: XR hand complete RT DATE OF EXAM: 12/06/2019 COMPARISON: None HISTORY: Strain of extensor muscles fashion tendons TECHNIQUE: 3 view right hand FINDINGS: No acute fractures or dislocations are evident. Soft tissues appear normal. Joint spaces ar e preserved. IMPRESSION: 1. Normal 3 view right hand. 2. Follow up exams can be performed 7-10 days from acute trauma for continued pain.
== END | disposition home or self-care (01) ==
LOC: RADXRMAIN 16:21
PROVIDERS: ATTEND Emergency Medicine
DX: S66.314A Strain of extensor muscle, fascia and tendon of right ring finger at wrist and hand level, initial encounter (principal); S66.316A Strain of extensor muscle, fascia and tendon of right little finger at wrist and hand level, initial encounter

== ENCOUNTER 2021-03-15 19:47 | Emergency (ER) | payer OTHER ==
[2021-03-15 19:52] VITALS: TEMP 97.6
--- NOTE | 2021-03-15 20:08 | ED ---
General Adult HPI - General Chief complaint: Fall Stated complaint: Horse accident, head injury Time Seen by Provider: 03/15/21 20:05 Source: patient Mode of arrival: ambulatory Limitations: no limitations - History of Present Illness Initial comments: Patient presents the ED stating that she was riding a horse about 30-45 minutes ago when the horse "bucked" her off. Patient states that she landed on her left buttock, and she also states that she hit the back of her head on the ground. Patient is currently complaining of having left buttock/tailbone pain, a posterior headache and left middle finger pain. Patient denies having any chest or abdominal pain to me (in contrast to what is documented in the triage note). Patient denies LOC, focal numbness/weakness/neuro deficit, neck/back/hip pain, chest pain, dyspnea, palpitations, dizziness, abdominal pain, nausea or vomiting, or any other symptoms or complaints. Patient was ambulatory to her ED room. - Related Data Home Medications Medication Instructions Recorded Confirmed No Known Home Medications 07/27/19 07/27/19 Allergies Allergy/AdvReac Type Severity Reaction Status Date / Time ciprofloxacin [From Cipro] Allergy Rash/Hives Verified 03/15/21 19:52 codeine Allergy Anaphylaxis Verified 03/15/21 19:52 Iodinated Contrast Media Allergy Anaphylaxis Verified 03/15/21 19:52 [Iodinated Contrast Media - IV Dye] iodine Allergy Anaphylaxis Verified 03/15/21 19:52 morphine Allergy Anaphylaxis Verified 03/15/21 19:52 peas Allergy Throat Verified 03/15/21 19:52 Itches Penicillins Allergy Dyspnea Verified 03/15/21 19:52 shrimp Allergy Unknown Verified 03/15/21 19:52 sulfamethoxazole Allergy Rash/Hives Verified 03/15/21 19:52 [From Bactrim] trimethoprim [From Bactrim] Allergy Rash/Hives Verified 03/15/21 19:52 Review of Systems ROS Statement: Those systems with pertinent positive or pertinent negative responses have been documented in the HPI. ROS Other: All systems not noted in ROS Statement are negative. Past Medical History Past Medical History: CVA/TIA, GERD/Reflux, Mitral Valve Prolapse (MVP) Additional Past Medical History / Comment(s): POTS, , MTHFR(CLOTTING DISORDER), hydronephrosis History of Any Multi-Drug Resistant Organisms: MRSA Date of last positivie culture/infection: 2006 MDRO Source:: THIGH Past Surgical History: Cholecystectomy, Hysterectomy Additional Past Surgical History / Comment(s): KIDNEY SURGERY Past Psychological History: No Psychological Hx Reported Smoking Status: Never smoker Past Alcohol Use History: None Reported Past Drug Use History: None Reported - Past Family History Father Family Medical History: Cancer General Exam Limitations: no limitations General appearance: alert, in no apparent distress Head exam: Present: atraumatic, normocephalic Eye exam: Present: normal appearance, PERRL, EOMI ENT exam: Present: mucous membranes moist, TM's normal bilaterally Neck exam: Present: normal inspection, other (Trachea is in midline). Absent: tenderness Respiratory exam: Present: normal lung sounds bilaterally. Absent: respiratory distress, wheezes, rales, rhonchi, stridor, chest wall tenderness Cardiovascular Exam: Present: regular rate, normal rhythm, normal heart sounds, other (Normal radial and dorsalis pedis pulses bilaterally) GI/Abdominal exam: Present: soft. Absent: distended, tenderness, guarding Extremities exam: Present: other (Pelvis is stable and nontender; patient has full range of motion at bilateral hips without any pain or discomfort; left buttock and coccygeal tenderness; distal left middle finger tenderness) Back exam: Present: normal inspection, other (Coccygeal tenderness) Neurological exam: Present: alert, oriented X3, CN II-XII intact. Absent: motor sensory deficit Psychiatric exam: Present: normal affect, normal mood Skin exam: Present: warm, dry, intact, normal color Course Vital Signs 03/15/21 19:48 Temperature 97.6 F Pulse Rate 92 Respiratory 20 Rate Blood Pressure 153/95 O2 Sat by Pulse 100 Oximetry - Reevaluation(s) Reevaluation #1: 03/15/21 21:52 Patient denies development of any new pain or symptoms while in the ED. Patient remains alert and breathing comfortably with a normal room air oxygen saturation. Patient and are aware the patient's negative imaging reports, and patient feels comfortable going home with her at this time. Patient was counseled about head injuries, contusions and finger sprains. Patient was clearly explained return and follow-up instructions, and she was instructed to follow up closely with her primary care provider. Patient feels comfortable to plan. Medical Decision Making - Medical Decision Making Patient's imaging studies are all negative. I do not suspect a significant traumatic injury or emergent medical condition at this time. Will discharge patient home with her at this time. - Radiology Data Radiology results: report reviewed (Noncontrast head and cervical spine CTs are negative; chest, left hand, pelvis and sacrum/coccyx x-rays are all negative) Disposition Clinical Impression: Fall, Head injury, Contusion, buttock, Finger injury, Coccygeal contusion Disposition: HOME SELF-CARE Condition: Stable Instructions (If sedation given, give patient instructions): Head Injury (ED), Contusion in Adults (ED), Finger Sprain (ED), Fall Prevention (ED) Additional Instructions: Return to the ER immediately should you develop new or worsening pain or symptoms. Follow up closely with your primary care provider. Is patient prescribed a controlled substance at d/c from ED?: No Referrals: Laverne Jarrett MD [Primary Care Provider] - 1-2 days Time of Disposition: 21:54
--- NOTE | 2021-03-15 21:08 | CT ---
EXAMINATION TYPE: CT brain cspine wo con DATE OF EXAM: 03/15/2021 COMPARISON: None available. HISTORY: Fall from horse, posterior head injury. CT DLP: 1299.5 mGycm Automated exposure control for dose reduction was used. TECHNIQUE: CT scan of the head and cervical spine are performed without contrast. FINDINGS: There is no acute intracranial hemorrhage, mass effect, or midline shift identified. The ventricles and sulci are within normal limits in size. The globes are intact and the visualized sin uses are clear. Cervical spine is visualized in its entirety from C1 through upper thoracic levels and demonstrates s atisfactory alignment without evidence of acute fracture or dislocation. Prevertebral soft tissue ap pears within normal limits. The C1-C2 articulation is unremarkable. IMPRESSION: 1. There is no acute fracture or dislocation evident in the cervical spine. 2. No acute intracranial hemorrhage, mass effect, or midline shift is seen.
--- NOTE | 2021-03-15 21:17 | XR ---
RESULT: HISTORY: fall TECHNIQUE: AP view of pelvis. 3 views of the sacrum/coccyx. COMPARISON: None. FINDINGS: There is no acute displaced fracture or dislocation of the pelvis, sacrum or coccyx. The visualized j oint spaces are preserved. IMPRESSION: No displaced fracture.
--- NOTE | 2021-03-15 21:18 | XR ---
Result: Clinical History: Pain. Comparison: None available. Technique: 3 views of the left hand. Findings: No acute fracture or dislocation is seen. The visualized osseous structures are in anatomic alignmen t. The joint spaces are preserved. There is no definite radiopaque foreign body seen. Impression: No acute osseous abnormality.
--- NOTE | 2021-03-15 21:25 | XR ---
EXAMINATION TYPE: XR chest 1V portable DATE OF EXAM: 03/15/2021 COMPARISON: 09/01/2019. HISTORY: Pain status post fall. TECHNIQUE: Single frontal view of the chest is obtained. FINDINGS: There is no focal air space opacity, pleural effusion, or pneumothorax seen. The cardiac silhouette size is within normal limits. The osseous structures are intact. IMPRESSION: No acute process.
[2021-03-15 22:06] VITALS: BP 137/68; PULSE 82; RESP 18
== END 2021-03-15 22:06 | disposition home or self-care (01) ==
LOC: EC 19:47
DX: S09.90XA Unspecified injury of head, initial encounter (principal); S30.0XXA Contusion of lower back and pelvis, initial encounter; M79.645 Pain in left finger(s); K21.9 Gastro-esophageal reflux disease without esophagitis; Z86.73 Personal history of transient ischemic attack (TIA), and cerebral infarction without residual deficits; Z88.0 Allergy status to penicillin; V80.010A Animal-rider injured by fall from or being thrown from horse in noncollision accident, initial encounter; Y93.52 Activity, horseback riding
CPT/HCPCS: 70450; 71045; 72125; 72170; 72220; 99284

== ENCOUNTER 2021-03-27 11:29 | Emergency (ER) | payer OTHER ==
[2021-03-27 13:27] VITALS: RESP 18
--- NOTE | 2021-03-27 14:19 | XR ---
EXAMINATION TYPE: XR chest 2V DATE OF EXAM: 03/27/2021 COMPARISON: 03/15/2021 HISTORY: Dysrhythmia TECHNIQUE: Frontal and lateral views of the chest are obtained. FINDINGS: Heart size is within normal limits. No focal consolidation, pneumothorax or pleural effusi on. Osseous structures are unremarkable. IMPRESSION: 1. No acute pulmonary disease.
--- NOTE | 2021-03-27 14:23 | CT ---
EXAMINATION TYPE: CT brain wo con DATE OF EXAM: 03/27/2021 COMPARISON: 03/15/2021 INDICATION: Fall from horse 10 days ago DLP: 1033.4 mGycm, Automated exposure control for dose reduction was used. CONTRAST: None CT of the brain is performed utilizing 3 mm thick sections through the posterior fossa and 3 mm thick sections through the remaining calvarium. Study is performed within 24 hours of arrival to the hosp ital. No abnormal hyperdensity is present to suggest an acute intracranial hemorrhage. No mass lesion is evident. No acute infarcts are evident. Ventricles and sulci are appropriate for the patient age. Paranasal sinuses and mastoid air cells within the [id number] are clear. IMPRESSIONS: 1. Normal CT Brain
[2021-03-27 14:25] LABS: Basophils % (A) 1 %; Eosinophils # (A) 0.1 k/uL (0-0.7); Eosinophils % (A) 1 %; HGB 14.1 gm/dL (11.4-16.0); Lymphocytes # (A) 1.6 k/uL (1.0-4.8); Lymphocytes % (A) 23 %; MCH 27.6 pg (25.0-35.0); MCHC 32.1 g/dL (31.0-37.0); Mean Platelet Volume 6.6; Monocytes # (A) 0.3 k/uL (0-1.0); Monocytes % (A) 5 %; Neutrophils # (A) 4.5 k/uL (1.3-7.7); Neutrophils % (A) 69 %; Platelet Count 373 k/uL (150-450); Potassium 4.1 mmol/L (3.5-5.1); RBC 5.12 m/uL (3.80-5.40); RDW 13.1 % (11.5-15.5); WBC 6.6 k/uL (3.8-10.6)
[2021-03-27 14:27] LABS: ALT 11 U/L (4-34); AST 21 U/L (14-36); African American GFR (CKD) >90 (>60 ml/min/1.73 sqM); Albumin 4.5 g/dL (3.5-5.0); Alkaline Phosphatase 80 U/L (38-126); Anion Gap 7 mmol/L; Blood Urea Nitrogen 9 mg/dL (7-17); Carbon Dioxide 28 mmol/L (22-30); Chloride 104 mmol/L (98-107); Glucose 89 mg/dL (74-99); Non-African American GFR(CKD) 80 (>60 ml/min/1.73 sqM); Sodium 139 mmol/L (137-145); Total Bilirubin 0.5 mg/dL (0.2-1.3); Total Protein 7.4 g/dL (6.3-8.2)
--- NOTE | 2021-03-27 14:50 | ED ---
General Adult HPI - General Chief complaint: Arrhythmia/Palpitations Stated complaint: Irregular HB/Head Injury Time Seen by Provider: 03/27/21 12:25 Source: patient, RN notes reviewed, old records reviewed Mode of arrival: ambulatory Limitations: no limitations - History of Present Illness Initial comments: This is a 41-year-old female presents emergency Department complaining that she's been having some palpitations she also mentions one week ago she fell off a horse and hit her head and came to the emergency department and CAT scan was negative. Patient states since that she's had a constant headache and felt as though her vision is a little off she states headache is in the back of her head where she hit she's very concerned symptoms are not resolving and may be getting a little bit worse per patient states she has had some episodes of slight nausea as well. Patient states the palpitations lasted for one to 2 seconds and then go away and then they come back after a few minutes. Patient denies any difficulty breathing or shortness of breath however when the palpitations occur she states she feels like she has the need to take a deep breath. Patient denies any fever chills or cough per patient denies any abdominal pain patient denies any swelling in the legs or calf tenderness. - Related Data Home Medications Medication Instructions Recorded Confirmed Acetaminophen Tab [Tylenol Tab] 1,000 mg PO Q6HR PRN 03/27/21 03/27/21 Ascorbic Acid [Vitamin C] 500 mg PO DAILY 03/27/21 03/27/21 Cholecalciferol [Vitamin D3 (25 25 mcg PO DAILY 03/27/21 03/27/21 Mcg = 1000 Iu)] Omeprazole 20 mg PO DAILY 03/27/21 03/27/21 Zinc 50 mg PO DAILY 03/27/21 03/27/21 Allergies Allergy/AdvReac Type Severity Reaction Status Date / Time ciprofloxacin [From Cipro] Allergy Rash/Hives Verified 03/27/21 13:29 codeine Allergy Anaphylaxis Verified 03/27/21 13:29 Iodinated Contrast Media Allergy Anaphylaxis Verified 03/27/21 13:29 [Iodinated Contrast Media - IV Dye] iodine Allergy Anaphylaxis Verified 03/27/21 13:29 morphine Allergy Anaphylaxis Verified 03/27/21 13:29 peas Allergy Throat Verified 03/27/21 13:29 Itches Penicillins Allergy Dyspnea Verified 03/27/21 13:29 shrimp Allergy Unknown Verified 03/27/21 13:29 sulfamethoxazole Allergy Rash/Hives Verified 03/27/21 13:29 [From Bactrim] trimethoprim [From Bactrim] Allergy Rash/Hives Verified 03/27/21 13:29 Review of Systems ROS Statement: Those systems with pertinent positive or pertinent negative responses have been documented in the HPI. ROS Other: All systems not noted in ROS Statement are negative. Past Medical History Past Medical History: CVA/TIA, GERD/Reflux, Mitral Valve Prolapse (MVP) Additional Past Medical History / Comment(s): POTS, , MTHFR(CLOTTING DISORDER), hydronephrosis History of Any Multi-Drug Resistant Organisms: MRSA Date of last positivie culture/infection: 2006 MDRO Source:: THIGH Past Surgical History: Cholecystectomy, Hysterectomy Additional Past Surgical History / Comment(s): KIDNEY SURGERY Past Psychological History: No Psychological Hx Reported Smoking Status: Never smoker Past Alcohol Use History: None Reported Past Drug Use History: None Reported - Past Family History Father Family Medical History: Cancer General Exam - General Exam Comments Initial Comments: GENERAL: Patient is well-developed and well-nourished. Patient is nontoxic and well- hydrated and is in no acute distress. ENT: Neck is soft and supple. No significant lymphadenopathy is noted. Oropharynx is clear. Moist mucous membranes. Neck has full range of motion without eliciting any pain. EYES: The sclera were anicteric and conjunctiva were pink and moist. Extraocular movements were intact and pupils were equal round and reactive to light. Eyelids were unremarkable. PULMONARY: Unlabored respirations. Good breath sounds bilaterally. No audible rales rhonchi or wheezing was noted. CARDIOVASCULAR: There is a regular rate and rhythm without any murmurs gallops or rubs. ABDOMEN: Soft and nontender with normal bowel sounds. No palpable organomegaly was noted. There is no palpable pulsatile mass. SKIN: Skin is clear with no lesions or rashes and otherwise unremarkable. NEUROLOGIC: Patient is alert and oriented x3. Cranial nerves II through XII are grossly intact. Motor and sensory are also intact. Normal speech, volume and content. Symmetrical smile. MUSCULOSKELETAL: Normal extremities with adequate strength and full range of motion. LYMPHATICS: No significant lymphadenopathy is noted PSYCHIATRIC: Normal psychiatric evaluation. Limitations: no limitations Course Vital Signs 03/27/21 03/27/21 11:39 13:26 Temperature 98.0 F Pulse Rate 70 75 Respiratory 16 18 Rate Blood Pressure 129/86 141/93 O2 Sat by Pulse 99 98 Oximetry Medical Decision Making - Medical Decision Making EKG shows normal sinus rhythm at 62 bpm MD interval is 170 QRS is 88 QT interval 412 QTC is 418. Patient's EKG shows no ST segment elevation or depression. Patient indicated to me on multiple occasions lives in the room that she felt palpitations when I looked up at the monitor it was a PAC. Patient states this was the exact feeling she had earlier. - Lab Data Result diagrams: 03/27/21 13:51 03/27/21 13:51 Lab Results 03/27/21 03/27/21 Range/Units 13:51 13:51 WBC 6.6 (3.8-10.6) k/uL RBC 5.12 (3.80-5.40) m/uL Hgb 14.1 (11.4-16.0) gm/dL Hct 44.0 (34.0-46.0) % MCV 86.0 (80.0-100.0) fL MCH 27.6 (25.0-35.0) pg MCHC 32.1 (31.0-37.0) g/dL RDW 13.1 (11.5-15.5) % Plt Count 373 (150-450) k/uL MPV 6.6 Neutrophils % 69 % Lymphocytes % 23 % Monocytes % 5 % Eosinophils % 1 % Basophils % 1 % Neutrophils # 4.5 (1.3-7.7) k/uL Lymphocytes # 1.6 (1.0-4.8) k/uL Monocytes # 0.3 (0-1.0) k/uL Eosinophils # 0.1 (0-0.7) k/uL Basophils # 0.0 (0-0.2) k/uL Potassium 4.1 (3.5-5.1) mmol/L Disposition Clinical Impression: Concussion, PAC (premature atrial contraction) Disposition: HOME SELF-CARE Condition: Good Instructions (If sedation given, give patient instructions): Premature Atrial Contractions (ED), Concussion (ED) Is patient prescribed a controlled substance at d/c from ED?: No Referrals: Laverne Jarrett MD [Primary Care Provider] - 1-2 days Time of Disposition: 14:45
[2021-03-27 15:11] VITALS: BP 130/94; PULSE 78; TEMP 97.8
== END 2021-03-27 15:07 | disposition home or self-care (01) ==
LOC: EC 11:29
DX: S06.0X1A Concussion with loss of consciousness of 30 minutes or less, initial encounter (principal); I49.1 Atrial premature depolarization; K21.9 Gastro-esophageal reflux disease without esophagitis; Z90.49 Acquired absence of other specified parts of digestive tract; Z90.710 Acquired absence of both cervix and uterus; Z86.73 Personal history of transient ischemic attack (TIA), and cerebral infarction without residual deficits; V80.010A Animal-rider injured by fall from or being thrown from horse in noncollision accident, initial encounter; Y93.52 Activity, horseback riding
CPT/HCPCS: 36415; 70450; 71046; 80053; 83735; 84484; 85025; 93005; 99285

== ENCOUNTER 2021-04-01 12:28 | Emergency (ER) | payer OTHER ==
[2021-04-01 12:37] VITALS: BP 156/95; PULSE 79; RESP 18; TEMP 97.9
[2021-04-01] MEDS ORDERED: diphenhydrAMINE 50 MG/ML 1 ML VIAL IVP STA (12:47)
[2021-04-01] MEDS ORDERED: SODIUM CHLORIDE 0.9% 1,000 ML IV STA (12:47)
[2021-04-01] MEDS ORDERED: ONDANSETRON 4 MG/2 ML VIAL IVP STA (12:47)
[2021-04-01] MEDS ORDERED: ACETAMINOPHEN TAB 500 MG TAB PO STA (12:47)
[2021-04-01 13:12] LABS: Basophils % (A) 1 %; Eosinophils # (A) 0.1 k/uL (0-0.7); Eosinophils % (A) 1 %; HGB 14.1 gm/dL (11.4-16.0); Lymphocytes # (A) 1.2 k/uL (1.0-4.8); Lymphocytes % (A) 17 %; MCH 28.8 pg (25.0-35.0); MCHC 33.6 g/dL (31.0-37.0); MCV 85.7 fL (80.0-100.0); Mean Platelet Volume 6.6; Monocytes # (A) 0.4 k/uL (0-1.0); Monocytes % (A) 5 %; Neutrophils # (A) 5.7 k/uL (1.3-7.7); Neutrophils % (A) 76 %; Platelet Count 322 k/uL (150-450); RDW 12.7 % (11.5-15.5); WBC 7.5 k/uL (3.8-10.6)
--- NOTE | 2021-04-01 13:12 | ED ---
General Adult HPI - General Chief complaint: Recheck/Abnormal Lab/Rx Stated complaint: Dizzy Time Seen by Provider: 04/01/21 12:31 Source: patient, RN notes reviewed Mode of arrival: EMS Limitations: no limitations - History of Present Illness Initial comments: Patient is a 41-year-old female that presents to emergency department via EMS complaining of a headache and just feeling funny. She notes that she was running around doing errands this morning when she felt able to sit at home and noted that she had some headache type pain a little bit of blurry vision that has since subsided. She noted that her abdominal pain/burning is also subsided. She is more concerned with her headache at the moment. She denied any pain stating that it was just uncomfortable. She was in no apparent distress or pain while sitting up in bed during the exam interview. - Related Data Home Medications Medication Instructions Recorded Confirmed Acetaminophen Tab [Tylenol Tab] 1,000 mg PO Q6HR PRN 03/27/21 04/01/21 Ascorbic Acid [Vitamin C] 500 mg PO DAILY 03/27/21 04/01/21 Cholecalciferol [Vitamin D3 (25 25 mcg PO DAILY 03/27/21 04/01/21 Mcg = 1000 Iu)] Omeprazole 20 mg PO DAILY 03/27/21 04/01/21 Zinc 50 mg PO DAILY 03/27/21 04/01/21 Allergies Allergy/AdvReac Type Severity Reaction Status Date / Time ciprofloxacin [From Cipro] Allergy Rash/Hives Verified 04/01/21 13:21 codeine Allergy Anaphylaxis Verified 04/01/21 13:21 Iodinated Contrast Media Allergy Anaphylaxis Verified 04/01/21 13:21 [Iodinated Contrast Media - IV Dye] iodine Allergy Anaphylaxis Verified 04/01/21 13:21 morphine Allergy Anaphylaxis Verified 04/01/21 13:21 peas Allergy Throat Verified 04/01/21 13:21 Itches Penicillins Allergy Dyspnea Verified 04/01/21 13:21 shrimp Allergy Unknown Verified 04/01/21 13:21 sulfamethoxazole Allergy Rash/Hives Verified 04/01/21 13:21 [From Bactrim] trimethoprim [From Bactrim] Allergy Rash/Hives Verified 04/01/21 13:21 mri contrast Allergy Unknown Uncoded 04/01/21 13:21 Review of Systems ROS Statement: Those systems with pertinent positive or pertinent negative responses have been documented in the HPI. ROS Other: All systems not noted in ROS Statement are negative. Past Medical History Past Medical History: CVA/TIA, GERD/Reflux, Mitral Valve Prolapse (MVP) Additional Past Medical History / Comment(s): POTS, , MTHFR(CLOTTING DISORDER), hydronephrosis History of Any Multi-Drug Resistant Organisms: MRSA Date of last positivie culture/infection: 2006 MDRO Source:: THIGH Past Surgical History: Cholecystectomy, Hysterectomy Additional Past Surgical History / Comment(s): KIDNEY SURGERY Past Psychological History: No Psychological Hx Reported Smoking Status: Never smoker Past Alcohol Use History: None Reported Past Drug Use History: None Reported - Past Family History Father Family Medical History: Cancer General Exam Limitations: no limitations General appearance: alert, in no apparent distress Head exam: Present: atraumatic, normocephalic, normal inspection Eye exam: Present: normal appearance, PERRL, EOMI. Absent: scleral icterus, conjunctival injection, periorbital swelling Neck exam: Present: normal inspection. Absent: tenderness, meningismus, lymphadenopathy Respiratory exam: Present: normal lung sounds bilaterally. Absent: respiratory distress, wheezes, rales, rhonchi, stridor Cardiovascular Exam: Present: regular rate, normal rhythm, normal heart sounds. Absent: systolic murmur, diastolic murmur, rubs, gallop, clicks GI/Abdominal exam: Present: soft, normal bowel sounds. Absent: distended, tenderness, guarding, rebound, rigid Extremities exam: Present: normal inspection, full ROM, normal capillary refill. Absent: tenderness, pedal edema, joint swelling, calf tenderness Neurological exam: Present: alert, oriented X3, CN II-XII intact Psychiatric exam: Present: normal affect, normal mood Skin exam: Present: warm, dry, intact, normal color. Absent: rash Course Vital Signs 04/01/21 12:31 Temperature 97.9 F Pulse Rate 79 Respiratory 18 Rate Blood Pressure 156/95 O2 Sat by Pulse 99 Oximetry Medical Decision Making - Medical Decision Making 41-year-old female complaining of posterior headache with no recent trauma or injury to her head. Labs, 4 mg Zofran, 1000 mg of Tylenol, 50 mg of Benadryl, 1 L normal saline o rdered. Labs unremarkable. Case discussed with Dr. Jarrell, patient can just to primary care. - Lab Data Result diagrams: 04/01/21 12:59 04/01/21 12:59 Lab Results 04/01/21 04/01/21 04/01/21 Range/Units 12:59 12:59 12:59 WBC 7.5 (3.8-10.6) k/uL RBC 4.90 (3.80-5.40) m/uL Hgb 14.1 (11.4-16.0) gm/dL Hct 42.0 (34.0-46.0) % MCV 85.7 (80.0-100.0) fL MCH 28.8 (25.0-35.0) pg MCHC 33.6 (31.0-37.0) g/dL RDW 12.7 (11.5-15.5) % Plt Count 322 (150-450) k/uL MPV 6.6 Neutrophils % 76 % Lymphocytes % 17 % Monocytes % 5 % Eosinophils % 1 % Basophils % 1 % Neutrophils # 5.7 (1.3-7.7) k/uL Lymphocytes # 1.2 (1.0-4.8) k/uL Monocytes # 0.4 (0-1.0) k/uL Eosinophils # 0.1 (0-0.7) k/uL Basophils # 0.0 (0-0.2) k/uL Sodium 141 (137-145) mmol/L Potassium 3.9 (3.5-5.1) mmol/L Chloride 104 (98-107) mmol/L Carbon Dioxide 27 (22-30) mmol/L Anion Gap 10 mmol/L BUN 9 (7-17) mg/dL Creatinine 0.87 (0.52-1.04) mg/dL Est GFR (CKD-EPI)AfAm >90 (>60 ml/min/1.73 sqM) Est GFR (CKD-EPI)NonAf 82 (>60 ml/min/1.73 sqM) Glucose 98 (74-99) mg/dL Calcium 9.2 (8.4-10.2) mg/dL Total Bilirubin 0.4 (0.2-1.3) mg/dL AST 20 (14-36) U/L ALT 12 (4-34) U/L Alkaline Phosphatase 81 (38-126) U/L Total Protein 7.4 (6.3-8.2) g/dL Albumin 4.4 (3.5-5.0) g/dL Amylase 71 (30-110) U/L Lipase 100 (23-300) U/L Urine Color Colorless Urine Appearance Cloudy H (Clear) Urine pH 6.5 (5.0-8.0) Ur Specific [place] 1.002 (1.001-1.035) Urine Protein Negative (Negative) Urine Glucose (UA) Negative (Negative) Urine Ketones Negative (Negative) Urine Blood Negative (Negative) Urine Nitrite Negative (Negative) Urine Bilirubin Negative (Negative) Urine Urobilinogen <2.0 (<2.0) mg/dL Ur Leukocyte Esterase Negative (Negative) Ur Squamous Epith Cells 2 (0-4) /hpf Urine Bacteria Rare H (None) /hpf Disposition Clinical Impression: Headache Disposition: HOME SELF-CARE Condition: Stable Instructions (If sedation given, give patient instructions): Tension Headache (ED) Additional Instructions: Please return to the Emergency Department if symptoms worsen or any other concerns. Take Tylenol and Motrin as needed for pain control. Increase oral fluids. Follow-up primary care in the next 2-3 days. Is patient prescribed a controlled substance at d/c from ED?: No Referrals: Laevrne Jarrett MD [Primary Care Provider] - 1-2 days Time of Disposition: 13:47
[2021-04-01 13:16] LABS: Appearance,Urine Cloudy (Clear); Bacteria,Urine Rare /hpf; Bilirubin,Urine Negative (Negative); Blood,Urine Negative (Negative); Color,Urine Colorless; Glucose,Urine (UA) Negative (Negative); Ketones,Urine Negative (Negative); Leukocyte Esterase,Urine Negative (Negative); Nitrite,Urine Negative (Negative); PH, Urine 6.5 (5.0-8.0); Protein,Urine Negative (Negative); Specific Gravity,Urine 1.002 (1.001-1.035); Squamous Epithelial Cell,Urine 2 /hpf (0-4); Urobilinogen,Urine <2.0 mg/dL (<2.0)
[2021-04-01 13:25] LABS: ALT 12 U/L (4-34); AST 20 U/L (14-36); African American GFR (CKD) >90 (>60 ml/min/1.73 sqM); Albumin 4.4 g/dL (3.5-5.0); Alkaline Phosphatase 81 U/L (38-126); Amylase 71 U/L (30-110); Anion Gap 10 mmol/L; Blood Urea Nitrogen 9 mg/dL (7-17); Calcium 9.2 mg/dL (8.4-10.2); Carbon Dioxide 27 mmol/L (22-30); Chloride 104 mmol/L (98-107); Glucose 98 mg/dL (74-99); Lipase 100 U/L (23-300); Non-African American GFR(CKD) 82 (>60 ml/min/1.73 sqM); Potassium 3.9 mmol/L (3.5-5.1); Sodium 141 mmol/L (137-145); Total Bilirubin 0.4 mg/dL (0.2-1.3); Total Protein 7.4 g/dL (6.3-8.2)
== END 2021-04-01 14:09 | disposition home or self-care (01) ==
LOC: EC 12:28
DX: R51.9 Headache, unspecified (principal); R42 Dizziness and giddiness; K21.9 Gastro-esophageal reflux disease without esophagitis; Z86.73 Personal history of transient ischemic attack (TIA), and cerebral infarction without residual deficits
CPT/HCPCS: 36415; 80053; 82150; 83690; 85025; 81001; 99284; 96374; 96375; 96361; J1200; J2405

== ENCOUNTER 2021-09-02 22:03 | Emergency (ER) | payer OTHER ==
[2021-09-02 22:25] VITALS: RESP 18
[2021-09-02] MEDS ORDERED: methylPREDNISolone SOD SUCCI 125 MG/2 ML VIAL IM ONE (23:17)
[2021-09-02] MEDS ORDERED: diphenhydrAMINE 50 MG/ML 1 ML VIAL IM STA (23:17)
[2021-09-02] MEDS ORDERED: FAMOTIDINE 20 MG TAB PO STA (23:18)
--- NOTE | 2021-09-02 23:19 | ED ---
General Adult HPI - General Chief complaint: Allergic Reaction Stated complaint: Allergic reaction Time Seen by Provider: 09/02/21 23:09 Source: patient Mode of arrival: ambulatory Limitations: no limitations - History of Present Illness Initial comments: 41-year-old female patient presents to the emergency department today for evaluation of itchy rash. States that this evening while lying in bed she noticed her palm started to itch. She then began having itching on her feet and noticed a rash on her legs, arms, abdomen. She denies any new exposures. States she did change her laundry detergent about a month ago although she has used in the past without difficulty. She states she has been sick with upper respiratory congestion and cough for the last 3 days. She denies any fever or chills. Denies taking any medications for her symptoms. Denies any lip, tongue, or throat swelling. Denies shortness of breath. - Related Data Home Medications Medication Instructions Recorded Confirmed Acetaminophen Tab [Tylenol Tab] 1,000 mg PO Q6HR PRN 03/27/21 04/01/21 Ascorbic Acid [Vitamin C] 500 mg PO DAILY 03/27/21 04/01/21 Cholecalciferol [Vitamin D3 (25 25 mcg PO DAILY 03/27/21 04/01/21 Mcg = 1000 Iu)] Omeprazole 20 mg PO DAILY 03/27/21 04/01/21 Zinc 50 mg PO DAILY 03/27/21 04/01/21 Previous Rx's Medication Instructions Recorded Famotidine [Pepcid] 20 mg PO DAILY #3 tablet 09/02/21 predniSONE 50 mg PO DAILY #3 tab 09/02/21 Allergies Allergy/AdvReac Type Severity Reaction Status Date / Time ciprofloxacin [From Cipro] Allergy Rash/Hives Verified 09/02/21 22:25 codeine Allergy Anaphylaxis Verified 09/02/21 22:25 Iodinated Contrast Media Allergy Anaphylaxis Verified 09/02/21 22:25 [Iodinated Contrast Media - IV Dye] iodine Allergy Anaphylaxis Verified 09/02/21 22:25 morphine Allergy Anaphylaxis Verified 09/02/21 22:25 peas Allergy Throat Verified 09/02/21 22:25 Itches Penicillins Allergy Dyspnea Verified 09/02/21 22:25 shrimp Allergy Unknown Verified 09/02/21 22:25 sulfamethoxazole Allergy Rash/Hives Verified 09/02/21 22:25 [From Bactrim] trimethoprim [From Bactrim] Allergy Rash/Hives Verified 09/02/21 22:25 mri contrast Allergy Unknown Uncoded 09/02/21 22:25 Review of Systems ROS Statement: Those systems with pertinent positive or pertinent negative responses have been documented in the HPI. ROS Other: All systems not noted in ROS Statement are negative. Past Medical History Past Medical History: CVA/TIA, GERD/Reflux, Mitral Valve Prolapse (MVP) Additional Past Medical History / Comment(s): POTS, , MTHFR(CLOTTING DISORDER), hydronephrosis History of Any Multi-Drug Resistant Organisms: MRSA Date of last positivie culture/infection: 2006 MDRO Source:: THIGH Past Surgical History: Cholecystectomy, Hysterectomy Additional Past Surgical History / Comment(s): KIDNEY SURGERY Past Psychological History: No Psychological Hx Reported Smoking Status: Never smoker Past Alcohol Use History: None Reported Past Drug Use History: None Reported - Past Family History Father Family Medical History: Cancer General Exam Limitations: no limitations General appearance: alert, in no apparent distress, other (This is a well- developed, well-nourished adult female patient in no acute distress.) ENT exam: Present: normal exam, normal oropharynx, mucous membranes moist Respiratory exam: Present: normal lung sounds bilaterally. Absent: respiratory distress, wheezes, rales, rhonchi, stridor Cardiovascular Exam: Present: regular rate, normal rhythm, normal heart sounds. Absent: systolic murmur, diastolic murmur, rubs, gallop, clicks GI/Abdominal exam: Present: soft, normal bowel sounds. Absent: distended, tenderness, guarding, rebound, rigid Neurological exam: Present: alert, oriented X3, CN II-XII intact Psychiatric exam: Present: normal affect, normal mood Skin exam: Present: warm, dry, intact, normal color, rash (Urticarial rash noted over arms, abdomen, and legs. Lesions are non-petechial and nonvesicular.) Course Vital Signs 09/02/21 09/02/21 22:20 23:43 Temperature 98.7 F Pulse Rate 89 97 Respiratory 18 18 Rate Blood Pressure 131/88 130/85 O2 Sat by Pulse 98 98 Oximetry Medical Decision Making - Medical Decision Making 41-year-old female patient presented for evaluation of itchy rashes started tonight. Physical examination did reveal urticarial lesions over the arms, abdomen, legs. She is not having any difficulty breathing or any mouth swelling. She was given Solu-Medrol, Benadryl, Pepcid. She will be discharged to follow-up with her primary care physician for recheck in 1-2 days. She is given prescriptions for Pepcid and prednisone for the next 3 days. Return parameters were discussed in detail. She verbalizes understanding and agrees with this plan. My attending is Dr. Camilo. Disposition Clinical Impression: Urticaria Disposition: HOME SELF-CARE Condition: Good Instructions (If sedation given, give patient instructions): Urticaria (ED) Additional Instructions: Take medications as directed. Complete prescription in full. Take Benadryl every 6 hours as needed. Follow-up through primary care physician for recheck in 1-2 days. Return for any new, worsening, or concerning symptoms. Prescriptions: Famotidine [Pepcid] 20 mg PO DAILY #3 tablet predniSONE 50 mg PO DAILY #3 tab Is patient prescribed a controlled substance at d/c from ED?: No Referrals: Laverne Jarrett MD [Primary Care Provider] - 1-2 days Time of Disposition: 23:19
[2021-09-03 00:36] VITALS: BP 117/79; PULSE 92; TEMP 97.9
== END 2021-09-03 00:36 | disposition home or self-care (01) ==
LOC: EC 22:03
DX: L50.9 Urticaria, unspecified (principal); K21.9 Gastro-esophageal reflux disease without esophagitis; Z79.52 Long term (current) use of systemic steroids; Z79.899 Other long term (current) drug therapy; Z86.73 Personal history of transient ischemic attack (TIA), and cerebral infarction without residual deficits; Z88.0 Allergy status to penicillin; Z88.1 Allergy status to other antibiotic agents; Z88.2 Allergy status to sulfonamides; Z88.8 Allergy status to other drugs, medicaments and biological substances; Z90.49 Acquired absence of other specified parts of digestive tract
CPT/HCPCS: 99283; 96372 ×2; J1200; J2930

== ENCOUNTER 2022-01-07 11:07 | Emergency (ER) | payer OTHER ==
[2022-01-07 11:34] VITALS: RESP 18; TEMP 98.7
--- NOTE | 2022-01-07 12:11 | CT ---
EXAMINATION TYPE: CT brain cspine wo con DATE OF EXAM: 01/07/2022 COMPARISON: CT brain 03/27/2021 HISTORY: Hit in face with dodgeball yesterday. CT DLP: 1266.5 mGycm Automated exposure control for dose reduction was used. TECHNIQUE: CT scan of the head and cervical spine are performed without contrast. FINDINGS: There is no acute intracranial hemorrhage, mass effect, or midline shift identified. The ventricles and sulci are within normal limits in size. The globes are intact and the visualized sin uses are clear. Cervical spine is visualized in its entirety from C1 through upper thoracic levels and demonstrates s atisfactory alignment without evidence of acute fracture or dislocation. Prevertebral soft tissue ap pears within normal limits. The C1-C2 articulation is unremarkable. IMPRESSION: 1. There is no acute fracture or dislocation evident in the cervical spine. 2. No acute intracranial hemorrhage, mass effect, or midline shift is seen.
[2022-01-07 12:26] VITALS: BP 132/85; PULSE 77
--- NOTE | 2022-01-07 12:32 | ED ---
Head Injury HPI - General Chief complaint: Head Injury Stated complaint: head injury Time Seen by Provider: 01/07/22 11:40 Source: patient, family, RN notes reviewed Mode of arrival: ambulatory Limitations: no limitations - History of Present Illness Initial comments: Is a 41-year-old female presents emergency Department with chief complaint of facial, head pain. Patient states that she was at a dodgeball event last night she was struck in the face on a sparkly. Patient states it went to her back. She not following her head. She states she had instant pain and complains of right-sided neck discomfort, right-sided headache. Patient states she's been no blood thinners patient has no focal weakness no vomiting no change vision at this time states that she is very sore and she was concerned. - Related Data Home Medications Medication Instructions Recorded Confirmed Acetaminophen Tab [Tylenol Tab] 1,000 mg PO Q6HR PRN 03/27/21 04/01/21 Ascorbic Acid [Vitamin C] 500 mg PO DAILY 03/27/21 04/01/21 Cholecalciferol [Vitamin D3 (25 25 mcg PO DAILY 03/27/21 04/01/21 Mcg = 1000 Iu)] Omeprazole 20 mg PO DAILY 03/27/21 04/01/21 Zinc 50 mg PO DAILY 03/27/21 04/01/21 Previous Rx's Medication Instructions Recorded Famotidine [Pepcid] 20 mg PO DAILY #3 tablet 09/02/21 predniSONE 50 mg PO DAILY #3 tab 09/02/21 Allergies/Adverse reactions: Allergies Allergy/AdvReac Type Severity Reaction Status Date / Time ciprofloxacin [From Cipro] Allergy Rash/Hives Verified 01/07/22 11:31 codeine Allergy Anaphylaxis Verified 01/07/22 11:31 Iodinated Contrast Media Allergy Anaphylaxis Verified 01/07/22 11:31 [Iodinated Contrast Media - IV Dye] iodine Allergy Anaphylaxis Verified 01/07/22 11:31 morphine Allergy Anaphylaxis Verified 01/07/22 11:31 peas Allergy Throat Verified 01/07/22 11:31 Itches Penicillins Allergy Dyspnea Verified 01/07/22 11:31 shrimp Allergy Unknown Verified 01/07/22 11:31 sulfamethoxazole Allergy Rash/Hives Verified 01/07/22 11:31 [From Bactrim] trimethoprim [From Bactrim] Allergy Rash/Hives Verified 01/07/22 11:31 mri contrast Allergy Unknown Uncoded 01/07/22 11:31 Review of Systems ROS Statement: Those systems with pertinent positive or pertinent negative responses have been documented in the HPI. ROS Other: All systems not noted in ROS Statement are negative. Past Medical History Past Medical History: CVA/TIA, GERD/Reflux, Mitral Valve Prolapse (MVP) Additional Past Medical History / Comment(s): POTS, , MTHFR(CLOTTING DISORDER), hydronephrosis History of Any Multi-Drug Resistant Organisms: MRSA Date of last positivie culture/infection: 2006 MDRO Source:: THIGH Past Surgical History: Cholecystectomy, Hysterectomy Additional Past Surgical History / Comment(s): KIDNEY SURGERY Past Psychological History: No Psychological Hx Reported Smoking Status: Never smoker Past Alcohol Use History: None Reported Past Drug Use History: None Reported - Past Family History Father Family Medical History: Cancer General Exam Limitations: no limitations General appearance: alert, in no apparent distress Head exam: Present: atraumatic, normocephalic, normal inspection Eye exam: Present: normal appearance, PERRL, EOMI. Absent: scleral icterus, conjunctival injection, periorbital swelling ENT exam: Present: normal exam, normal oropharynx, mucous membranes moist Neck exam: Present: normal inspection, full ROM. Absent: tenderness, meningismus, lymphadenopathy Respiratory exam: Present: normal lung sounds bilaterally. Absent: respiratory distress, wheezes, rales, rhonchi, stridor Cardiovascular Exam: Present: regular rate, normal rhythm, normal heart sounds. Absent: systolic murmur, diastolic murmur, rubs, gallop, clicks GI/Abdominal exam: Present: soft, normal bowel sounds. Absent: distended, tenderness, guarding, rebound, rigid Neurological exam: Present: alert, oriented X3, CN II-XII intact, reflexes normal. Absent: motor sensory deficit Skin exam: Present: warm, dry, intact, normal color. Absent: rash Course Vital Signs 01/07/22 01/07/22 11:31 12:25 Temperature 98.7 F Pulse Rate 91 77 Respiratory 18 18 Rate Blood Pressure 140/82 132/85 O2 Sat by Pulse 99 98 Oximetry Medical Decision Making - Medical Decision Making CT of brain, C-spine is unremarkable. Patient will be discharged in stable condition return parameters were discussed. Patient agrees to plan. Disposition Clinical Impression: Facial contusion, Headache, Neck strain Disposition: HOME SELF-CARE Condition: Stable Instructions (If sedation given, give patient instructions): Head Injury (ED) Additional Instructions: Please return to the Emergency Department if symptoms worsen or any other concerns. Is patient prescribed a controlled substance at d/c from ED?: No Referrals: Laverne Jarrett MD [Primary Care Provider] - 1-2 days Time of Disposition: 12:32
== END 2022-01-07 12:38 | disposition home or self-care (01) ==
LOC: EC 11:07
DX: S00.83XA Contusion of other part of head, initial encounter (principal); S16.1XXA Strain of muscle, fascia and tendon at neck level, initial encounter; K21.9 Gastro-esophageal reflux disease without esophagitis; Z88.5 Allergy status to narcotic agent; Z88.0 Allergy status to penicillin; Z88.1 Allergy status to other antibiotic agents; Z88.2 Allergy status to sulfonamides; Z86.73 Personal history of transient ischemic attack (TIA), and cerebral infarction without residual deficits; Z79.899 Other long term (current) drug therapy; Z90.49 Acquired absence of other specified parts of digestive tract; Z90.710 Acquired absence of both cervix and uterus; W21.09XA Struck by other hit or thrown ball, initial encounter; Y93.6A Activity, physical games generally associated with school recess, summer camp and children
CPT/HCPCS: 70450; 72125; 99284

== ENCOUNTER → 2022-04-10 | Outpatient (CLI) | payer OTHER ==
--- NOTE | 2022-04-13 11:33 | MM ---
Reason for Exam: Screening (asymptomatic). Last mammogram was performed 3 year(s) and 10 month(s) ago. Patient History: Menarche at age 12. First Full-Term at age 18. Hysterectomy at age 32. Patient has history of breast feeding. Maternal grandmother had breast cancer, age 70. Risk Values: Kaylin 5 year model risk: 0.6%. NCI Lifetime model risk: 8.0%. Prior Study Comparison: 09/10/2015 Bilateral Diagnostic Mammogram, [facility]. 03/19/2016 Right Diagnostic Mammogram, [facility]. 05/26/2018 Bilateral Screening Mammogram, [facility]. Tissue Density: The breast tissue is heterogeneously dense. This may lower the sensitivity of mammography. Findings: Analyzed By CAD. There is no suspicious group of microcalcifications or new suspicious mass in either breast. Overall Assessment: Negative, BI-RAD 1 Management: Screening Mammogram of both breasts in 1 year. A clinical breast exam by your physician is recommended on an annual basis and results should be correlated with mammographic findings. Electronically signed and approved by: Alverto Lay M.D. Radiologis
== END | disposition home or self-care (01) ==
LOC: RADMAMWWP 11:20
PROVIDERS: ATTEND Obstetrics & Gynecology
DX: Z12.31 Encounter for screening mammogram for malignant neoplasm of breast (principal); Z78.0 Asymptomatic menopausal state; Z80.3 Family history of malignant neoplasm of breast
CPT/HCPCS: 77063; 77067

== ENCOUNTER 2022-07-09 12:03 | Emergency (ER) | payer OTHER ==
[2022-07-09 12:49] VITALS: TEMP 98.2
[2022-07-09] MEDS ORDERED: KETOROLAC 15 MG/ML 1 ML VIAL IM STA (17:41)
--- NOTE | 2022-07-09 19:39 | ED ---
Abdominal Pain HPI - General Chief Complaint: Abdominal Pain Stated Complaint: pelvic pain Time Seen by Provider: 07/09/22 16:41 Source: patient Mode of arrival: ambulatory Limitations: no limitations - History of Present Illness Initial Comments: Patient is a 42-year-old female with recent diagnosis of right inguinal hernia who presents to the emergency department for evaluation of possible incarcerated hernia. Patient was diagnosed couple months ago. Has intermittent right lower quadrant pain which is triggered by lifting heavy, coughing, bowel movement. The patient get better at rest. Patient states she was evaluated by her primary care provider today due to increased hernia pain who had concern for incarceration. Patient denies fever, chills, nausea, vomiting. Reports normal bowel movements, last was today, nonbloody. Patient eating and drinking without limitation. - Related Data Home Medications Medication Instructions Recorded Confirmed Acetaminophen Tab [Tylenol Tab] 1,000 mg PO Q6HR PRN 03/27/21 07/09/22 Ascorbic Acid [Vitamin C] 500 mg PO DAILY 03/27/21 07/09/22 Cholecalciferol [Vitamin D3 (25 25 mcg PO DAILY 03/27/21 07/09/22 Mcg = 1000 Iu)] Zinc 50 mg PO DAILY 03/27/21 07/09/22 Cetirizine HCl 10 mg PO HS 07/09/22 07/09/22 Omeprazole [PriLOSEC] 20 mg PO DAILY PRN 07/09/22 07/09/22 Allergies Allergy/AdvReac Type Severity Reaction Status Date / Time ciprofloxacin [From Cipro] Allergy Rash/Hives Verified 07/09/22 18:08 codeine Allergy Anaphylaxis Verified 07/09/22 18:08 Iodinated Contrast Media Allergy Anaphylaxis Verified 07/09/22 18:08 [Iodinated Contrast Media - IV Dye] iodine Allergy Anaphylaxis Verified 07/09/22 18:08 morphine Allergy Anaphylaxis Verified 07/09/22 18:08 peas Allergy Throat Verified 07/09/22 18:08 Itches Penicillins Allergy Dyspnea Verified 07/09/22 18:08 shellfish derived [Shellfish] Allergy Unknown Verified 07/09/22 18:08 shrimp Allergy Unknown Verified 07/09/22 18:08 sulfamethoxazole Allergy Rash/Hives Verified 07/09/22 18:08 [From Bactrim] trimethoprim [From Bactrim] Allergy Rash/Hives Verified 07/09/22 18:08 diphenhydramine AdvReac See Comment Verified 07/09/22 18:08 [From Benadryl] prednisone AdvReac See Comment Verified 07/09/22 18:08 mri contrast Allergy Unknown Uncoded 07/09/22 18:08 Review of Systems ROS Statement: Those systems with pertinent positive or pertinent negative responses have been documented in the HPI. ROS Other: All systems not noted in ROS Statement are negative. Past Medical History Past Medical History: CVA/TIA, GERD/Reflux, Mitral Valve Prolapse (MVP) Additional Past Medical History / Comment(s): POTS, , MTHFR(CLOTTING DISORDER), hydronephrosis History of Any Multi-Drug Resistant Organisms: MRSA Date of last positivie culture/infection: 2006 MDRO Source:: THIGH Past Surgical History: Cholecystectomy, Hysterectomy Additional Past Surgical History / Comment(s): KIDNEY SURGERY Past Psychological History: No Psychological Hx Reported Smoking Status: Never smoker Past Alcohol Use History: None Reported Past Drug Use History: None Reported - Past Family History Father Family Medical History: Cancer General Exam Limitations: no limitations General appearance: alert, in no apparent distress Respiratory exam: Present: normal lung sounds bilaterally. Absent: respiratory distress, wheezes, rales, rhonchi, stridor Cardiovascular Exam: Present: regular rate, normal rhythm, normal heart sounds. Absent: systolic murmur, diastolic murmur, rubs, gallop, clicks GI/Abdominal exam: Present: soft, tenderness (Weakness of right kesselbach triangle palpated without significant pain. No definite hernia but possibly early. No overlying skin changes. ), normal bowel sounds. Absent: distended, guarding, rebound, rigid Neurological exam: Present: alert, oriented X3, CN II-XII intact Psychiatric exam: Present: normal affect, normal mood Skin exam: Present: warm, dry, intact, normal color. Absent: rash Course Vital Signs 07/09/22 12:41 Temperature 98.2 F Pulse Rate 77 Respiratory 22 Rate Blood Pressure 151/83 O2 Sat by Pulse 99 Oximetry Medical Decision Making - Medical Decision Making This is a 42-year-old female presents for evaluation of possible incarcerated hernia. Patient well-appearing and in no apparent distress. Vitals stable. Afebrile. Weakness of right kesselbach triangle palpated without significant pain. No definite hernia but possibly early. No overlying skin changes. Patient very adamant that she needs computed tomography scan. CT of the abdomen and pelvis was obtained which shows bilateral ovarian cysts measuring up to 1 cm otherwise no acute abnormality. Pain is not consistent with ovarian pathology. Patient does not have appointment with general surgeon until December. I will refer her to Dr. Rasmussen for sooner evaluation. Patient will be given work note for lifting restrictions. Return parameters discussed. Dr. Jarrell is my attending. - Lab Data Result diagrams: 07/09/22 19:34 Lab Results 07/09/22 Range/Units 19:34 WBC 9.1 (3.8-10.6) k/uL RBC 5.04 (3.80-5.40) m/uL Hgb 14.3 (11.4-16.0) gm/dL Hct 43.7 (34.0-46.0) % MCV 86.7 (80.0-100.0) fL MCH 28.5 (25.0-35.0) pg MCHC 32.8 (31.0-37.0) g/dL RDW 13.7 (11.5-15.5) % Plt Count 364 (150-450) k/uL MPV 7.1 Neutrophils % 71 % Lymphocytes % 21 % Monocytes % 5 % Eosinophils % 1 % Basophils % 0 % Neutrophils # 6.5 (1.3-7.7) k/uL Lymphocytes # 1.9 (1.0-4.8) k/uL Monocytes # 0.5 (0-1.0) k/uL Eosinophils # 0.1 (0-0.7) k/uL Basophils # 0.0 (0-0.2) k/uL Disposition Clinical Impression: RLQ abdominal pain Disposition: HOME SELF-CARE Condition: Good Instructions (If sedation given, give patient instructions): Inguinal Hernia (ED) Additional Instructions: Follow-up with general surgery in 1-2 days. Return to the emergency department experience new, concerning, or worsening symptoms Is patient prescribed a controlled substance at d/c from ED?: No Referrals: Laverne Jarrett MD [Primary Care Provider] - 1-2 days Lucho Rasmussen MD [Medical Doctor] - 1-2 days
[2022-07-09] MEDS ORDERED: KETOROLAC 15 MG/ML 1 ML VIAL IVP STA (19:53)
--- NOTE | 2022-07-09 20:19 | CT ---
EXAMINATION TYPE: CT abdomen pelvis wo con DATE OF EXAM: 07/09/2022 COMPARISON: None available HISTORY: RLQ pain. recent hernia dx CT DLP: 661.1 mGycm Automated exposure control for dose reduction was used. TECHNIQUE: Helical acquisition of images was performed from the lung bases through the pelvis. FINDINGS: LUNG BASES: No significant abnormality is appreciated. LIVER/GB: No significant abnormality is appreciated. Cholecystectomy. PANCREAS: No significant abnormality is seen. SPLEEN: No acute abnormality is seen. Scattered few small benign splenic calcifications in keeping wi th prior granulomatous disease. ADRENALS: No significant abnormality is seen. KIDNEYS: Right renal pelvic ectasia without obstructing calculus seen. Few nonobstructing bilateral r enal calculi measuring up to 2 mm. No left hydronephrosis. FREE AIR: No free air is visualized RETROPERITONEAL ADENOPATHY: None visualized REPRODUCTIVE ORGANS: No significant abnormality is seen URINARY BLADDER: No significant abnormality is seen. PELVIC ADENOPATHY: None visualized. OSSEOUS STRUCTURES: No significant abnormality is seen. BOWEL: No significant abnormality is seen. Normal appendix. OTHER: Bilateral ovarian cysts measuring up to 3.1 cm. IMPRESSION: BILATERAL OVARIAN CYSTS MEASURING UP TO 3.1 CM. MAY BE SOURCE OF PATIENT'S PAIN. OTHERWISE NO ACUTE ABNORMALITY OR APPENDICITIS. RIGHT RENAL PELVIC ECTASIA WITHOUT OBSTRUCTING CALCULUS. BILATERAL NEPHROLITHIASIS.
[2022-07-09 20:27] LABS: Basophils % (A) 0 %; Eosinophils # (A) 0.1 k/uL (0-0.7); Eosinophils % (A) 1 %; HCT 43.7 % (34.0-46.0); HGB 14.3 gm/dL (11.4-16.0); Lymphocytes # (A) 1.9 k/uL (1.0-4.8); Lymphocytes % (A) 21 %; MCH 28.5 pg (25.0-35.0); MCHC 32.8 g/dL (31.0-37.0); MCV 86.7 fL (80.0-100.0); Mean Platelet Volume 7.1; Monocytes # (A) 0.5 k/uL (0-1.0); Monocytes % (A) 5 %; Neutrophils # (A) 6.5 k/uL (1.3-7.7); Neutrophils % (A) 71 %; Platelet Count 364 k/uL (150-450); RBC 5.04 m/uL (3.80-5.40); RDW 13.7 % (11.5-15.5); WBC 9.1 k/uL (3.8-10.6)
[2022-07-09 20:56] LABS: Albumin 4.5 g/dL (3.5-5.0); Calcium 9.1 mg/dL (8.4-10.2); Potassium 3.7 mmol/L (3.5-5.1); Total Bilirubin 0.6 mg/dL (0.2-1.3); Total Protein 7.5 g/dL (6.3-8.2)
[2022-07-09 21:04] VITALS: BP 127/83; PULSE 68; RESP 16
== END 2022-07-09 21:13 | disposition home or self-care (01) ==
LOC: EC 12:03
DX: R10.31 Right lower quadrant pain (principal); K21.9 Gastro-esophageal reflux disease without esophagitis; Z79.82 Long term (current) use of aspirin; Z86.73 Personal history of transient ischemic attack (TIA), and cerebral infarction without residual deficits; Z88.5 Allergy status to narcotic agent; Z91.041 Radiographic dye allergy status; Z88.0 Allergy status to penicillin; Z91.09 Other allergy status, other than to drugs and biological substances; Z88.8 Allergy status to other drugs, medicaments and biological substances
CPT/HCPCS: 36415; 74176; 80053; 85025; 99284

== ENCOUNTER → 2025-01-16 | Outpatient (CLI) | payer BC ==
[2025-01-16 17:49] LABS: Basophils # (A) 0.04 X 10*3/uL (0.00-0.10); Basophils % (A) 0.5 %; Eosinophils # (A) 0.14 X 10*3/uL (0.04-0.35); Eosinophils % (A) 1.9 %; HCT 45.8 % (37.2-46.3); HGB 14.3 g/dL (12.0-15.0); Lymphocytes # (A) 1.47 X 10*3/uL (0.90-5.00); MCH 27.3 pg (27.0-32.0); MCHC 31.2 g/dL (32.0-37.0); MCV 87.6 FL (80.0-97.0); Mean Platelet Volume 9.4 FL (9.5-12.2); Monocytes # (A) 0.58 X 10*3/uL (0.20-1.00); Monocytes % (A) 7.9 %; NRBC Per 100 WBC 0 X 10*3/uL (0.00-0.01); Neutrophils # (A) 5.08 X 10*3/uL (1.80-7.70); Neutrophils % (A) 69.3 %; Platelet Count 385 X 10*3/uL (140-440); RBC 5.23 X 10*6/uL (4.10-5.20); WBC 7.34 X 10*3/uL (4.50-10.00)
[2025-01-16 18:27] LABS: ALT 17 U/L (8-44); AST 18 U/L (13-35); Albumin 4.3 g/dL (3.8-4.9); Albumin/Globulin Ratio 1.39 Ratio (1.60-3.17); Alkaline Phosphatase 94 U/L (41-126); Blood Urea Nitrogen 8.6 mg/dL (9.0-27.0); Calcium 9.2 mg/dL (8.7-10.3); Carbon Dioxide 24.4 mmol/L (21.6-31.8); Chloride 104 mmol/L (96-109); Chol/HDL Ratio 5.42 Ratio; Globulin 3.1 g/dL (1.6-3.3); Glucose 103 mg/dL (70-110); LDL Cholesterol,Calculated 170.7 mg/dL (0.0-131.0); Sodium 141 mmol/L (135-145); Total Bilirubin 0.5 mg/dL (0.3-1.2); Total Protein 7.4 g/dL (6.2-8.2)
== END | disposition home or self-care (01) ==
LOC: LABWHC1 09:42
PROVIDERS: ATTEND Internal Medicine Clinical Cardiac Electrophysiology
DX: I10 Essential (primary) hypertension (principal); E78.5 Hyperlipidemia, unspecified; G90.4 Autonomic dysreflexia
CPT/HCPCS: 36415; 80053; 80061; 83735; 84443; 85025